=== PATIENT | female | born 1985 | race Caucasian/White ===

== ENCOUNTER 2016-11-13 11:16 | Emergency (ER) | payer MEDICAID | END 2016-11-13 13:19 | disposition left against medical advice (07) | DX: Z53.21 Procedure and treatment not carried out due to patient leaving prior to being seen by health care provider (principal) ==

== ENCOUNTER 2017-05-04 08:32 | Outpatient (CLI) | payer MEDICAID | END 2017-05-04 08:33 | disposition critical access hospital (66) | LOC: EMS 08:32 | PROVIDERS: ATTEND Surgery | DX: O20.9 Hemorrhage in early pregnancy, unspecified (principal); Z3A.18 18 weeks gestation of pregnancy | CPT/HCPCS: A0425; A0427 ==

== ENCOUNTER 2017-05-04 08:49 | Emergency (ER) | payer MEDICAID ==
[2017-05-04 11:53] LABS: BASOPHILS # (AUTO) 0.1 10^3/uL (0.0-0.1); BASOPHILS % (AUTO) 0.9 %; EOSINOPHILS % (AUTO) 0.1 %; HCT - HEMATOCRIT 36.1 % (37.0-47.0); HGB - HEMOGLOBIN 12.9 g/dL (12.0-16.0); LYMPHOCYTES # (AUTO) 1.8 10^3/uL (1.5-3.5); LYMPHOCYTES % (AUTO) 15.6 %; MEAN CORPUSCULAR HEMOGLOBIN 32.3 pg (27.0-31.0); MEAN CORPUSCULAR HGB CONC 35.9 g/dL (32.0-36.0); MEAN PLATELET VOLUME 8.3 fL (7.9-10.8); MONOCYTES # (AUTO) 0.8 10^3/uL (0.0-1.0); MONOCYTES % (AUTO) 6.6 %; NEUTROPHILS % (AUTO) 76.8 %; RED BLOOD COUNT 4.01 10^6/uL (4.20-5.40); RED CELL DISTRIBUTION WIDTH 12.6 % (12.0-15.0); UNCORRECTED WHITE BLOOD COUNT 11.8 x10^3/uL; WHITE BLOOD COUNT 11.8 x10^3/uL (4.8-10.8)
[2017-05-04 12:55] LABS: UA w/ MICROSCOPIC CHARGE YES
[2017-05-04 13:01] LABS: BILIRUBIN,URINE NEGATIVE (NEGATIVE)
[2017-05-04 13:09] LABS: UR CULTURE IF IND NOT INDICATED
[2017-05-04] MEDS ORDERED: LORazepam 0.5 MG TABLET PO STA (13:27)
[2017-05-04] MEDS ORDERED: LORazepam 0.5 MG TABLET ONE (13:46)
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
[2017-05-04 16:42] VITALS: BP 129/62
== END 2017-05-04 16:47 | disposition home or self-care (01) ==
LOC: EDUNIT# → ED 08:49 → EEVIPCON 08:49 → ED 16:47
DX: O26.892 Other specified pregnancy related conditions, second trimester (principal); R10.84 Generalized abdominal pain; O99.332 Smoking (tobacco) complicating pregnancy, second trimester; Z3A.18 18 weeks gestation of pregnancy; Y08.09XA Assault by strike by other specified type of sport equipment, initial encounter
CPT/HCPCS: 36415; 81001; 85025; 99284; A9270; 81003; 86900; 86901; 87086

== ENCOUNTER 2017-05-20 07:49 | Outpatient (CLI) | payer MEDICAID ==
--- NOTE | 2017-05-21 10:31 | Ultrasound Report ---
OB ULTRASOUND: 05/20/2017 CLINICAL INDICATION: anatomy. TECHNIQUE: Real-time scanning was performed with sales representative supervisor static images obtained. LAST MENSTRUAL PERIOD 12/30/2016 Clinical Age 20 weeks 1 day US Age 20 weeks 0 days EFW Hadlock 347 g EFW% Hadlock 56% Heart Rate 140 bpm EDC 10/06/2017 US EDC 10/07/2017 BPD Hadlock 19 weeks 1 day; Mean mm 43.4 HC Hadlock 20 weeks 0 days; Mean mm 174.5 AC Hadlock 20 weeks 2 days; Mean mm 151.0 FL Hadlock 20 weeks 4 days; Mean mm 33.6 Presentation cephalic Placental Location anterior Cervical Length 4.4 cm Amniotic Fluid 11.2 cm FINDINGS: There is a single viable intrauterine gestation, in cephalic presentation. heart rate is 140 BPM. The placenta is anterior, without evidence of previa. Amniotic fluid volume is normal, with an CRISTY of 11.2. By size, the fetus measures 20.0 weeks (20.1 weeks by LMP). The following anatomic structures were visualized and appear normal: The intracranial contents, including the ventricles and posterior fossa; the lips and orbits; the spine; the heart, including 4 chamber view and outflow tracts, and diaphragm; the abdominal contents, including the stomach, the bilateral kidneys, and urinary bladder, as well as a normal 3 vessel cord insertion; 4 limbs. No free fluid or adnexal lesion is appreciated. IMPRESSION: SINGLE VIABLE INTRAUTERINE GESTATION, WITH SIZE IN KEEPING WITH LMP DATING. NORMAL ANATOMIC SURVEY. MTDD
== END 2017-05-20 07:50 | disposition home or self-care (01) ==
LOC: DI 07:49
PROVIDERS: ATTEND Obstetrics & Gynecology
DX: Z34.82 Encounter for supervision of other normal pregnancy, second trimester (principal)
CPT/HCPCS: 76811

== ENCOUNTER 2017-05-30 11:33 | Outpatient (CLI) | payer MEDICAID ==
[2017-05-30 12:11] LABS: BASOPHILS % (AUTO) 0.4 %; EOSINOPHILS % (AUTO) 0.5 %; HCT - HEMATOCRIT 35.8 % (37.0-47.0); HGB - HEMOGLOBIN 12.7 g/dL (12.0-16.0); LYMPHOCYTES # (AUTO) 1.3 10^3/uL (1.5-3.5); LYMPHOCYTES % (AUTO) 20.2 %; MEAN CORPUSCULAR HEMOGLOBIN 32.5 pg (27.0-31.0); MEAN CORPUSCULAR HGB CONC 35.4 g/dL (32.0-36.0); MEAN CORPUSCULAR VOLUME 91.8 fL (81.0-99.0); MEAN PLATELET VOLUME 7.8 fL (7.9-10.8); MONOCYTES # (AUTO) 0.4 10^3/uL (0.0-1.0); MONOCYTES % (AUTO) 6.3 %; NEUTROPHILS # (AUTO) 4.8 10^3/uL (1.5-6.6); NEUTROPHILS % (AUTO) 72.6 %; RED CELL DISTRIBUTION WIDTH 12.7 % (12.0-15.0); UNCORRECTED WHITE BLOOD COUNT 6.5 x10^3/uL; WHITE BLOOD COUNT 6.5 x10^3/uL (4.8-10.8)
[2017-05-30 12:25] LABS: BILIRUBIN,URINE NEGATIVE (NEGATIVE); PH,URINE 6.5 PH (5.0-7.5)
[2017-06-03 12:46] LABS: TEST RESULT REPORT (())
== END 2017-05-30 11:34 | disposition home or self-care (01) ==
LOC: LAB 11:33
PROVIDERS: ATTEND Obstetrics & Gynecology
DX: Z36 Encounter for antenatal screening of mother (principal); R30.0 Dysuria
CPT/HCPCS: 36415; 81001; 81599; 85025; 86762; 86780; 86850; 86900; 86901; 87077; 87086; 87340; 87389

== ENCOUNTER 2017-05-30 11:50 | Outpatient (CLI) | payer MEDICAID | END 2017-05-30 11:51 | LOC: LAB.R 11:50 | PROVIDERS: ATTEND Obstetrics & Gynecology | DX: R30.0 Dysuria (principal) | CPT/HCPCS: 87086 ==

== ENCOUNTER 2017-06-13 21:51 | Outpatient (CLI) | payer MEDICAID | END 2017-06-13 21:52 | disposition home or self-care (01) | LOC: LAB.R 21:51 | PROVIDERS: ATTEND Obstetrics & Gynecology | DX: Z11.3 Encounter for screening for infections with a predominantly sexual mode of transmission (principal) | CPT/HCPCS: 87491; 87591 ==

== ENCOUNTER 2017-07-10 14:24 | Outpatient (CLI) | payer MEDICAID ==
[2017-07-10 13:05] LABS: HCT - HEMATOCRIT 33.3 % (37.0-47.0); MEAN CORPUSCULAR HEMOGLOBIN 33.4 pg (27.0-31.0); MEAN CORPUSCULAR VOLUME 92.7 fL (81.0-99.0); MEAN PLATELET VOLUME 8.6 fL (7.9-10.8); RED BLOOD COUNT 3.59 10^6/uL (4.20-5.40); RED CELL DISTRIBUTION WIDTH 13.1 % (12.0-15.0)
== END 2017-07-10 14:25 | disposition home or self-care (01) ==
LOC: LAB.WCP 14:24
PROVIDERS: ATTEND Obstetrics & Gynecology
DX: Z34.90 Encounter for supervision of normal pregnancy, unspecified, unspecified trimester (principal)
CPT/HCPCS: 36415; 82950; 86850

== ENCOUNTER 2017-07-15 17:32 | Outpatient (CLI) | payer MEDICAID ==
[2017-07-15 18:28] LABS: BILIRUBIN,URINE NEGATIVE (NEGATIVE)
[2017-07-15 18:51] LABS: UR CULTURE IF IND NOT INDICATED
[2017-07-15] MEDS ORDERED: NITROFURANTOIN MACRO 100 MG CAPSULE PO SCH (19:00)
[2017-07-15] MEDS ORDERED: FLUCONAZOLE 100 MG TABLET PO SCH (19:00)
[2017-07-15 19:25] VITALS: BP 105/71
== END 2017-07-15 19:30 | disposition home or self-care (01) ==
LOC: WFO 17:32 → FBP 17:33 → WFO 19:30
PROVIDERS: ATTEND Obstetrics & Gynecology
DX: O98.813 Other maternal infectious and parasitic diseases complicating pregnancy, third trimester (principal); B37.49 Other urogenital candidiasis; Z3A.28 28 weeks gestation of pregnancy
CPT/HCPCS: 81001; 99213; A9270; 87086

== ENCOUNTER 2017-08-28 21:03 | Observation (INO) | payer MEDICAID ==
[2017-08-28 21:38] LABS: BILIRUBIN,URINE NEGATIVE (NEGATIVE)
[2017-08-28 21:40] LABS: UR CULTURE IF IND NOT INDICATED
[2017-08-28] MEDS: ZOLPIDEM 5 MG TABLET PO PRN (22:24)
[2017-08-29 06:22] LABS: BILIRUBIN,URINE NEGATIVE (NEGATIVE)
[2017-08-29 06:30] LABS: WBC,URINE 0-3 /HPF (0-5)
[2017-08-29] MEDS ORDERED: PARoxetine 10 MG TABLET PO SCH ×2 (08:00→14:00)
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
[2017-08-29] MEDS: PARoxetine 10 MG TABLET PO SCH (12:28)
[2017-08-29] MEDS: ACETAMINOPHEN 500 MG TABLET PO PRN ×2 (13:27→21:09)
[2017-08-29] MEDS: BACLOFEN 10 MG TABLET PO PRN ×2 (13:27→21:09)
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
[2017-08-29] MEDS: ZOLPIDEM 5 MG TABLET PO PRN (22:02)
[2017-08-30] MEDS: ACETAMINOPHEN 500 MG TABLET PO PRN (06:02)
[2017-08-30] MEDS: BACLOFEN 10 MG TABLET PO PRN (06:02)
[2017-08-30] MEDS ORDERED: PRENATAL VITAMIN TABLET PO SCH (08:00)
[2017-08-30] MEDS: PARoxetine 10 MG TABLET PO SCH (08:54)
--- NOTE | 2017-08-30 08:59 | PROVIDER PROGRESS NOTE ---
Subjective - Prog Note Date Prog Note Date: 08/30/17 Prog Note Time: 08:54 - Subjective Pt reports feeling: Improved Subjective: Patient sitting in bed eating breakfast. Baby moving well. No VB nor LOF. Feeling better since she's gotten sleep. Muscle relaxant has helped. Kids didn' t come last night. Objective - Vital Signs/Intake & Output Reviewed Vital Signs: Yes Vital Signs: Vital Signs x48h Temp Pulse Resp BP Pulse Ox 08/30/17 06:06 97.9 F 85 12 110/63 98 Intake & Output: Intake & Output 08/27/17 08/28/17 08/29/17 08/30/17 23:59 23:59 23:59 23:59 Intake Total 450 Balance 450 - Objective General Appearance: positive: No acute distress Abdomen: positive: Non-tender (Gravid, nontender) Assessment/Plan - Problem List (1) Depression affecting in third trimester, antepartum Impression: 31 yo with a 34w5d IUP Improved back pain More stable depression Will discharge to home today Rx ambien and cyclobenzaprine Follow up with me next Saturday (09/03/2017). Anticipate NSTs for depression.
[2017-08-30 16:20] VITALS: BP 119/76
== END 2017-08-30 16:00 | disposition home or self-care (01) ==
LOC: WFO 21:03 → FBP 21:04 → WFO 08-29 13:30 → FBP 08-29 13:32
PROVIDERS: ADMIT Obstetrics & Gynecology; ATTEND Obstetrics & Gynecology
DX: O99.89 Other specified diseases and conditions complicating pregnancy, childbirth and the puerperium (principal); M53.3 Sacrococcygeal disorders, not elsewhere classified; O99.343 Other mental disorders complicating pregnancy, third trimester; F32.9 Major depressive disorder, single episode, unspecified; Z3A.34 34 weeks gestation of pregnancy; Z87.440 Personal history of urinary (tract) infections; Z59.0 Homelessness; Z91.410 Personal history of adult physical and sexual abuse; F43.10 Post-traumatic stress disorder, unspecified; F41.9 Anxiety disorder, unspecified; O99.333 Smoking (tobacco) complicating pregnancy, third trimester; F17.210 Nicotine dependence, cigarettes, uncomplicated; O99.613 Diseases of the digestive system complicating pregnancy, third trimester; K21.9 Gastro-esophageal reflux disease without esophagitis; Z86.19 Personal history of other infectious and parasitic diseases; Z81.3 Family history of other psychoactive substance abuse and dependence; R87.810 Cervical high risk human papillomavirus (HPV) DNA test positive
CPT/HCPCS: 81001; 99213; A9270; G0378; 82731; 87086

== ENCOUNTER 2017-09-04 10:02 | Outpatient (CLI) | payer MEDICAID | END 2017-09-04 10:03 | disposition home or self-care (01) | LOC: LAB.R 10:02 | PROVIDERS: ATTEND Obstetrics & Gynecology | DX: Z36.89 Encounter for other specified antenatal screening (principal) | CPT/HCPCS: 87081 ==

== ENCOUNTER 2017-09-04 10:07 | Outpatient (CLI) | payer MEDICAID ==
[2017-09-04 10:27] VITALS: BP 105/57
== END 2017-09-04 13:40 | disposition home or self-care (01) ==
LOC: LAB 10:07 → FBP 10:08 → LAB 13:40
PROVIDERS: ATTEND Obstetrics & Gynecology
DX: O26.13 Low weight gain in pregnancy, third trimester (principal); Z36.89 Encounter for other specified antenatal screening
CPT/HCPCS: 59025; 87081

== ENCOUNTER 2017-09-10 11:08 | Outpatient (CLI) | payer MEDICAID ==
[2017-09-10 11:38] VITALS: BP 115/61
== END 2017-09-10 12:00 | disposition home or self-care (01) ==
LOC: WFO 11:08 → FBP 11:10 → WFO 12:00
PROVIDERS: ATTEND Obstetrics & Gynecology
DX: O26.13 Low weight gain in pregnancy, third trimester (principal); Z3A.36 36 weeks gestation of pregnancy
CPT/HCPCS: 59025

== ENCOUNTER 2017-09-29 06:58 | Inpatient (IN) | payer MEDICAID ==
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
[2017-09-29] MEDS ORDERED: ONDANSETRON 4 MG/2 ML VIAL IVP PRN ×2 (07:30→12:00)
[2017-09-29] MEDS ORDERED: fentaNYL 100 MCG/2 ML VIAL IVP PRN (07:30)
[2017-09-29 08:26] LABS: BASOPHILS % (AUTO) 0.3 %; EOSINOPHILS # (AUTO) 0.1 10^3/uL (0.0-0.7); EOSINOPHILS % (AUTO) 0.6 %; HGB - HEMOGLOBIN 10.9 g/dL (12.0-16.0); LYMPHOCYTES # (AUTO) 1.4 10^3/uL (1.5-3.5); LYMPHOCYTES % (AUTO) 11.3 %; MEAN CORPUSCULAR HEMOGLOBIN 31.8 pg (27.0-31.0); MEAN CORPUSCULAR HGB CONC 34.9 g/dL (32.0-36.0); MEAN CORPUSCULAR VOLUME 91.1 fL (81.0-99.0); MEAN PLATELET VOLUME 8.7 fL (7.9-10.8); NEUTROPHILS # (AUTO) 9.6 10^3/uL (1.5-6.6); NEUTROPHILS % (AUTO) 79.8 %; PLT - PLATELET COUNT 158 10^3/uL (130-450); RED BLOOD COUNT 3.44 10^6/uL (4.20-5.40); RED CELL DISTRIBUTION WIDTH 13.6 % (12.0-15.0); WHITE BLOOD COUNT 12.1 x10^3/uL (4.8-10.8)
[2017-09-29] MEDS: PARoxetine 10 MG TABLET PO SCH (08:51)
[2017-09-29] MEDS: SODIUM CHLORIDE FLUSH 0.9% 10 ML SYRINGE IVP PRN ×2 (08:57→11:16)
--- NOTE | 2017-09-29 09:12 | PROVIDER PROGRESS NOTE ---
Subjective - Prog Note Date Prog Note Date: 09/29/17 Prog Note Time: 09:10 - Subjective Pt reports feeling: No change Subjective: is here in bed, currently getting her IV. Accompanied by 4 female friends in the room. Excited to be delivered and have a sterilization. Reports baby girl Valeria moving well. No VB nor LOF. Continues to have irregular contractions. Objective - Vital Signs/Intake & Output Vital Signs: Vital Signs x48h Temp Pulse Resp BP Pulse Ox 09/29/17 07:50 98.1 F 119 H 18 116/72 100 - Objective General Appearance: positive: No acute distress Eyes Bilateral: positive: Normal inspection Abdomen: positive: Non-tender, Other (Gravid) - Lab Results Fish Bones: 09/29/17 08:05 Other Labs: Lab Results x24hrs 09/29/17 Range/Units 08:05 WBC 12.1 H (4.8-10.8) x10^3/uL RBC 3.44 L (4.20-5.40) 10^6/uL Hgb 10.9 L (12.0-16.0) g/dL Hct 31.4 L (37.0-47.0) % MCV 91.1 (81.0-99.0) fL MCH 31.8 H (27.0-31.0) pg MCHC 34.9 (32.0-36.0) g/dL RDW 13.6 (12.0-15.0) % Plt Count 158 (130-450) 10^3/uL MPV 8.7 (7.9-10.8) fL Neut # 9.6 H (1.5-6.6) 10^3/uL Lymph # 1.4 L (1.5-3.5) 10^3/uL [place] # 1.0 (0.0-1.0) 10^3/uL Eos # 0.1 (0.0-0.7) 10^3/uL Baso # 0.0 (0.0-0.1) 10^3/uL Absolute Nucleated RBC 0.00 x10^3/uL Nucleated RBC % 0.0 /100WBC Assessment/Plan - Problem List (1) Elective induction of labor planned Impression: 32 yo with a 39w0d IUP, C/W a 17 week U/S, EDC 10/06/2017 Desired elective induction of labor GBS negative Last CVE in office /2, moderately firm, posterior Desires epidural for pain control Start pitocin Once in a regular pattern, will give epidural and then AROM Expect Immediate tubal sterilization H&P already dictated: [id number]
[2017-09-29] MEDS: OXYTOCIN/SODIUM CHLORIDE 250 ML IV SCH ×2 (09:35→19:36)
[2017-09-29] MEDS: LACTATED RINGERS 1,000 ML IV SCH ×3 (09:35→20:35)
[2017-09-29] MEDS: CALCIUM CARBONATE CHEW 500 MG TABLET PO SCH ×3 (11:01→18:25)
--- NOTE | 2017-09-29 11:12 | PROVIDER PROGRESS NOTE ---
Labor Progress Note - Uterine Monitoring Uterine Monitoring Mode: positive: External toco Contraction Frequency (min/apart): Q5 Contraction Intensity: positive: Moderate to strong Uterine Resting Tone: positive: Soft - Monitoring Monitor Mode: positive: External ultrasound Heart Rate Variability: positive: Moderate (6-25 bmp) Accelerations: positive: Present, 15x15 Decelerations: positive: None Strip Review: positive: Category I - Labor Progress Note Labor Progress Note/Additional Text: 32 yo with a 39w0d IUP Desired induction of labor Desires epidural for pain control Continue pitocin (currently on 3 milliunits/min) Epidural AROM Expect tubal sterilization
[2017-09-29] MEDS ORDERED: fent/BUPIV 2 MCG/0.125% 250 ML EP ONE (11:14)
[2017-09-29] MEDS ORDERED: BUPIVACAINE 0.25% PF 30 ML VIAL SUBQ ONE (11:30)
[2017-09-29] MEDS ORDERED: NALOXONE 0.4 MG/ML VIAL IVP PRN (12:00)
[2017-09-29] MEDS ORDERED: diphenhydrAMINE INJ 50 MG/ML VIAL IVP PRN (12:00)
[2017-09-29] MEDS ORDERED: ePHEDrine 50 MG/ML VIAL IVP PRN (12:00)
[2017-09-29] MEDS ORDERED: NALBUPHINE 20 MG/ML AMP IVP PRN (12:00)
[2017-09-29] MEDS ORDERED: fent/BUPIV 2 MCG/0.125% 250 ML EP PRN (12:00)
[2017-09-29] MEDS ORDERED: LACTATED RINGERS 500 ML IV ONE (12:00)
[2017-09-29] MEDS: ACETAMINOPHEN 325 MG TABLET PO PRN ×3 (12:06→20:17)
--- NOTE | 2017-09-29 12:47 | PROVIDER PROGRESS NOTE ---
Labor Progress Note - Uterine Monitoring Uterine Monitoring Mode: positive: External toco Contraction Frequency (min/apart): Q2-5 Contraction Intensity: positive: Moderate to strong Uterine Resting Tone: positive: Soft - Monitoring Monitor Mode: positive: External ultrasound Heart Rate Variability: positive: Moderate (6-25 bmp) Accelerations: positive: Present, 15x15 Decelerations: positive: None - Vaginal Exam Dilation (in cm): 5 Effacement (%): 70 Station: -1 Cervical Position: Midposition - Labor Progress Note Labor Progress Note/Additional Text: 32 yo with a 39w0d IUP. Elective induction of labor. Desires permanent sterilization. Active labor CVE 5/70/-1, midposition, soft. Reassuring and maternal status. AROM-- clear fluid. Continue with pitocin, currently at 3 milliunits/min. Continue with epidural. Anesthesia aware of plan for immediate tubal sterilization. Expect .
[2017-09-29] MEDS: SODIUM CHLORIDE FLUSH 0.9% 10 ML SYRINGE IVP SCH ×2 (14:07→14:54)
[2017-09-29] MEDS: NICOTINE 14 MG PATCH TOP SCH (14:07)
--- NOTE | 2017-09-29 15:27 | PROVIDER PROGRESS NOTE ---
Labor Progress Note - Uterine Monitoring Uterine Monitoring Mode: positive: External toco Contraction Frequency (min/apart): Q2-5 Contraction Intensity: positive: Moderate to strong - Monitoring Monitor Mode: positive: External ultrasound Heart Rate Baseline: 120's Heart Rate Variability: positive: Moderate (6-25 bmp) Accelerations: positive: Present, 15x15 Decelerations: positive: None - Labor Progress Note Labor Progress Note/Additional Text: 32 yo with a 39w0d IUP Active labor (CVE deferred since the patient denies rectal pressure) AROM about 12:45 Desires permanent sterilization Continue pitocin (3 milliunits/minute) Continue epidural Expect sterilization
--- NOTE | 2017-09-29 16:30 | PROVIDER PROGRESS NOTE ---
Labor Progress Note - Uterine Monitoring Uterine Monitoring Mode: positive: External toco Contraction Frequency (min/apart): Q2 Contraction Intensity: positive: Moderate to strong Uterine Resting Tone: positive: Soft - Monitoring Monitor Mode: positive: External ultrasound Heart Rate Variability: positive: Moderate (6-25 bmp) Accelerations: positive: Present, 15x15 Decelerations: positive: None - Vaginal Exam Dilation (in cm): 7 Effacement (%): 70 Station: -1 Cervical Position: Midposition - Labor Progress Note Labor Progress Note/Additional Text: 32 yo with a 39w0d IUP. Active labor. Called by OB RN to bedside. On last CVE, RN noted copious amounts of BRB per vagina. Hand towels soaked. By my exam, no active bleeding, but a 65 gm clot removed. CVE /-1. Continue pitocin 4 milliunits/min. Continue epidural. Clinically patient abrupting but maternal and status reassuring. D/W the patient given reassuring status will continue VTOL. If however, either maternal of status nonreassuring, will proceed to immediate delivery with tubal sterilization. Expect with tubal sterilization. Close monitoring of maternal and status.
[2017-09-29] MEDS ORDERED: miSOPROStol 200 MCG TABLET PR SCH (16:42)
[2017-09-29] MEDS ORDERED: SODIUM CHLORIDE 0.9% MINIBAG 100 ML IV ONE (19:25)
[2017-09-29] MEDS ORDERED: OXYTOCIN/SODIUM CHLORIDE 250 ML IV ONE (19:45)
[2017-09-29] MEDS ORDERED: MAGNESIUM HYDROXIDE 2,400 MG/30 ML UDC PO PRN (19:45)
[2017-09-29] MEDS ORDERED: WITCH HAZEL/GLYCERIN 1 EACH MED..PAD TOP PRN (19:45)
[2017-09-29] MEDS ORDERED: diphenhydrAMINE 25 MG CAPSULE PO PRN (19:45)
[2017-09-29] MEDS ORDERED: HYDROCORTISONE/PRAMOXINE 10 GM PR PRN (19:45)
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
[2017-09-29] MEDS: DOCUSATE SODIUM 100 MG CAPSULE PO SCH (20:17)
[2017-09-29] MEDS: CELECOXIB 100 MG CAPSULE PO SCH (20:17)
[2017-09-29] MEDS: HYDROcod/ACETAM 5/325 MG TABLET PO PRN (22:15)
[2017-09-30] MEDS: LACTATED RINGERS 1,000 ML IV SCH (04:08)
[2017-09-30] MEDS: HYDROcod/ACETAM 5/325 MG TABLET PO PRN ×3 (04:17→20:41)
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
[2017-09-30] MEDS ORDERED: BUPIVACAINE 0.25%-EPI 1:200000 PF 30 ML VIAL SUBQ ONE ×2 (11:38→12:09)
[2017-09-30] MEDS ORDERED: LACTATED RINGERS 1,000 ML IV ONE ×4 (11:39→12:36)
[2017-09-30] MEDS ORDERED: LIDOCAINE MPF 2%-EPI 1:200000 20 ML VIAL SUBQ ONE (11:50)
[2017-09-30] MEDS ORDERED: OXYTOCIN/SODIUM CHLORIDE 250 ML IV ONE (12:50)
--- NOTE | 2017-09-30 12:57 | OPERATIVE REPORT ---
Operative Report - General Admit Date: 09/29/17 Procedure Date: 09/30/17 Planned Procedure: tubal with Filshe Clips Pre-Op Diagnosis: 32 yo P5 Post Op Diagnosis: Same - Procedure Note Primary Surgeon: Luiz Kuhn MD Anesthesia Provider: Michael Lawrence MD Anesthesia Technique: Epidural IV Fluids (mL): 500 Estimated Blood Loss (mL): 5
[2017-09-30] MEDS ORDERED: LACTATED RINGERS 1,000 ML IV SCH (13:00)
[2017-09-30] MEDS: PARoxetine 10 MG TABLET PO SCH (13:27)
[2017-09-30] MEDS: CELECOXIB 100 MG CAPSULE PO SCH ×2 (13:28→20:41)
[2017-09-30] MEDS: CALCIUM CARBONATE CHEW 500 MG TABLET PO SCH (16:00)
[2017-09-30] MEDS: NICOTINE 14 MG PATCH TOP SCH (16:01)
[2017-09-30] MEDS: DOCUSATE SODIUM 100 MG CAPSULE PO SCH ×2 (16:01→20:41)
[2017-09-30] MEDS: PSEUDOEPHEDRINE 30 MG TABLET PO PRN (20:41)
[2017-09-30] MEDS: SIMETHICONE CHEW 80 MG TABLET PO PRN (21:41)
[2017-10-01] MEDS: OXYMETAZOLINE NASAL SPRAY NAS PRN ×2 (00:20→14:23)
[2017-10-01] MEDS: HYDROcod/ACETAM 5/325 MG TABLET PO PRN ×3 (02:53→14:20)
[2017-10-01] MEDS: SIMETHICONE CHEW 80 MG TABLET PO PRN (03:01)
[2017-10-01] MEDS: PSEUDOEPHEDRINE 30 MG TABLET PO PRN (05:02)
[2017-10-01] MEDS: CALCIUM CARBONATE CHEW 500 MG TABLET PO SCH ×3 (06:29→15:57)
--- NOTE | 2017-10-01 07:33 | OPERATIVE REPORT ---
DATE OF SERVICE: 09/29/2017 Physician: Luiz Kuhn MD PREOPERATIVE DIAGNOSIS: A 32-year-old female, para 5, requesting permanent sterilization. POSTOPERATIVE DIAGNOSIS: A 32-year-old female, para 5, requesting permanent sterilization. PROCEDURE PERFORMED: tubal ligation with Filshie clips. SURGEON: Luiz Kuhn MD ANESTHESIA: Epidural. ESTIMATED BLOOD LOSS: Less than 5 mL FINDINGS: Fallopian tubes appeared to be normal, were traced all the way to the fimbriated end. PROCEDURE: Following adequate epidural anesthesia, the patient was placed in the supine position. Following a time out, which identified the patient, as well as concerns, she was prepped and draped in the usual fashion. Following local anesthesia with 0.25% Marcaine with epinephrine injected in the subumbilical area, a curvilinear incision was made utilizing a #15 blade. An umbilical hernia was encountered. The incision was carried down all the way to the fascia and then into the peritoneum. Care was taken to avoid injury to the bowel at this time. At this point, utilizing [place] retractors as well as the fifth digit, the right fallopian tube was brought up to the incision, grasped with a German and followed all the way to its fimbriated end. A Hulka clip was then placed completely traversing the fallopian tube, roughly 2 cm from the cornu. Care was observed, and there was no evidence of any bleeding. The tube was allowed to fall back in the abdominal cavity. The left tube was treated in an identical fashion. Following the utilization of [place] retractors and the smallest digit, the fallopian tube was brought up through the incision, followed all the way to its fimbriated end, and then roughly 2 cm from the cornu, a Filshie clip was placed traversing the fallopian tube. Care was taken to observe this, and there was no evidence of any kind of bleeding at this time. The peritoneum was closed utilizing 2-0 Vicryl. The fascia was closed utilizing 0 Vicryl. Care was taken to try and close the umbilical defect. The incision itself was closed utilizing 4-0 Monocryl, and then Dermabond was utilized to close the incision itself. The patient tolerated procedure well, was taken to recovery in stable condition. Sponge and needle counts were correct. TD: 10/01/2017 08:15 [facility]
[2017-10-01] MEDS: CELECOXIB 100 MG CAPSULE PO SCH (08:05)
[2017-10-01] MEDS: DOCUSATE SODIUM 100 MG CAPSULE PO SCH (08:05)
--- NOTE | 2017-10-01 08:42 | PROVIDER PROGRESS NOTE ---
Subjective - General Admit Date: 09/29/17 Procedure Date: 09/30/17 Post Op Days: 1 Procedure Performed: Tubal ligation - Review of Systems Wound/Incisions: positive: Healing well, Dressing dry and intact, No drainage, Erythema (just below the incision possible brusing from the surgery) General: positive: No symptoms HEENT: positive: Sinus congestion, Post nasal drip Cardiovascular: positive: No symptoms Gastrointestinal: positive: No symptoms, Flatus Genitourinary: positive: No symptoms Psychiatric: positive: Anxiety. negative: Suicidal ideation, Homicidal ideation Objective - Patient Data Reviewed Vital Signs: Yes Vital Signs: Vital Signs x48h Temp Pulse Resp BP Pulse Ox 10/01/17 08:38 36.8 C 81 18 104/65 99 10/01/17 02:50 36.7 C 86 18 103/55 L 98 Weight: Weight 09/29/17 09/30/17 10/01/17 23:59 23:59 23:59 Weight (kg) 78.471 kg Intake & Output: Intake and Output Totals x24h 09/29/17 09/30/17 10/01/17 23:59 23:59 23:59 Intake Total 1407.186 7690 Output Total 1050 2550 Balance 310.017 -1295 - Lab Results Lab Results: 09/29/17 08:05 - Current Medications Current Medications: Current Medications Generic Name Dose Route Start Last Admin Trade Name Freq PRN Reason Stop Dose Admin Acetaminophen 650 mg 09/29/17 07:30 09/29/17 20:17 Tylenol PO 650 mg Q6H PRN Administration Pain or Fever Acetaminophen/Hydrocodone Bitart 2 tab 09/29/17 19:45 10/01/17 08:05 [place] 5/325 PO 2 tab Q4HR PRN Administration PAIN Calcium Carbonate/Glycine 500 mg 09/29/17 11:00 10/01/17 06:32 Tums PO Not Given TID RASHAAD Celecoxib 200 mg 09/29/17 21:00 10/01/17 08:05 Celebrex PO 200 mg BID RASHAAD Administration Docusate Sodium 100 mg 09/29/17 21:00 10/01/17 08:05 Colace 100mg Capsule PO 100 mg BID RASHAAD Administration Nicotine 1 patch 09/29/17 11:00 09/30/17 16:01 Nicoderm TOP Not Given DAILY RASHAAD Oxymetazoline HCl 2 sprays 10/01/17 00:02 10/01/17 00:20 Afrin TREVOR 2 sprays BID PRN Administration Nasal Congestion Paroxetine HCl 30 mg 09/29/17 09:00 09/30/17 13:27 Paxil PO 30 mg DAILY RASHAAD Administration Pseudoephedrine HCl 30 mg 09/30/17 14:01 10/01/17 05:02 Sudafed PO 30 mg Q6HR PRN Administration Nasal Congestion Ranitidine HCl 150 mg 09/29/17 10:29 09/30/17 20:41 Zantac PO 150 mg BID RASHAAD Administration Simethicone 80 mg 09/30/17 13:42 10/01/17 03:01 Mylicon PO 80 mg 0900,1300,1800,2100 PRN Administration Gas Witch Sharon/Glycerin 1 each 09/29/17 19:45 09/30/17 02:08 Tucks TOP 1 each QID PRN Administration Hemorrhoids - Physical Exam Wound/Incisions: positive: Healing well General Appearance: positive: Mild distress (pain 6-7/10.) Respiratory: positive: Chest non-tender, No respiratory distress, Breath sounds nml. negative: Wheezes Cardiovascular: positive: Regular rate & rhythm Abdomen: positive: Nml bowel sounds, No distention, Tenderness (at the incision site. Pt C/O pain at the left filshe clip), Mass (U-1) Back: positive: Nml inspection. negative: CVA tenderness (R), CVA tenderness (L ) Neurologic/Psychiatric: positive: Oriented x3, Depressed mood/affect (Pt changed her afect when we discused the nicodem Patch for smoking) Impression/Plan - Problem List Problem List: Discharge for boarding status. Continue her Meds of Paxel Motrin Percocet Colace Tylenol Afern
[2017-10-01 11:20] VITALS: BP 102/64
[2017-10-01] MEDS: PARoxetine 10 MG TABLET PO SCH (14:21)
[2017-10-01] MEDS: NICOTINE 14 MG PATCH TOP SCH (15:57)
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
--- NOTE | 2017-10-09 08:30 | Discharge Plan ---
Discharge Plan Disposition: 01 Home, Self Care Condition: Good Diet: Regular Activity Restrictions: Pelvic rest 6 weeks Shower Restrictions: Yes Driving Restrictions: Yes (when taking narcotics) Weight Bearing: Full Weight No Smoking: If you smoke, Please STOP! Call for help. Follow-up with: Sagrario Dominguez DO [Provider Admit Priv/Credential] -
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
== END 2017-10-01 15:45 | disposition home or self-care (01) | DRG 767 ==
LOC: WFO 06:58 → FBP 06:59
PROVIDERS: ADMIT Obstetrics & Gynecology; ATTEND Obstetrics & Gynecology
PROC: 10E0XZZ Delivery of Products of Conception, External Approach (ICD-10-PCS; principal; 2017-09-29)
PROC: 0U7C7ZZ Dilation of Cervix, Via Natural or Artificial Opening (ICD-10-PCS; 2017-09-29)
PROC: 10907ZC Drainage of Amniotic Fluid, Therapeutic from Products of Conception, Via Natural or Artificial Opening (ICD-10-PCS; 2017-09-29)
PROC: 0UL70CZ Occlusion of Bilateral Fallopian Tubes with Extraluminal Device, Open Approach (ICD-10-PCS; 2017-09-30)
DX: O99.344 Other mental disorders complicating childbirth (principal); O45.93 Premature separation of placenta, unspecified, third trimester; O99.334 Smoking (tobacco) complicating childbirth; Z37.0 Single live birth; F17.200 Nicotine dependence, unspecified, uncomplicated; Z3A.39 39 weeks gestation of pregnancy; F32.9 Major depressive disorder, single episode, unspecified; F41.9 Anxiety disorder, unspecified; F43.10 Post-traumatic stress disorder, unspecified; Z87.440 Personal history of urinary (tract) infections; Z86.19 Personal history of other infectious and parasitic diseases; Z30.2 Encounter for sterilization; Z91.419 Personal history of unspecified adult abuse
CPT/HCPCS: 36415; 85025; 88307

== ENCOUNTER 2018-02-21 13:21 | Emergency (ER) | payer MEDICAID ==
[2018-02-21 13:38] VITALS: BP 125/79
--- NOTE | 2018-02-21 14:17 | ED Physician Documentation ---
History of Present Illness - Stated complaint Stated Complaint: EAR PX BOTH EARS - Chief complaint Chief Complaint: Heent - History obtained from History obtained from: Patient - History of Present Illness Timing: Other (several months) Pain level max: 4 Pain level now: 3 Improved by: nothing Worsened by: nothing - Additonal information Additional information: Patient is a 32-year-old female who presents to the emergency department complaining of intermittent bilateral ear pain for the past several months. Today it is on the right side. She also had some white/yellow drainage from the right ear yesterday. No fevers. No vomiting. No chance of . No loss of hearing. No nasal congestion. No sore throat. Does have a history of eczema. 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 - Present Medications Home Medications: Ambulatory Orders Medication Instructions Recorded Confirmed Neomycin/Polymyx/Hc Otic Drops 4 drops OT TID 7 Days #1 bottle 02/21/18 [Cortisporin Ear Susp] - Allergies Allergies/Adverse Reactions: Allergies Allergy/AdvReac Type Severity Reaction Status Date / Time mushroom Allergy Mild Itching Verified 02/21/18 13:39 Penicillins Allergy Mild Rash Verified 02/21/18 13:39 - Social History Does the pt smoke?: Yes Smoking Status: Current every day smoker Does the pt drink ETOH?: Yes ETOH Use: Liquor Does the pt have substance abuse?: Yes Substance Use and Type: Marijuana - Immunizations Immunizations are current?: Yes - POLST Patient has POLST: No PD ED PE NORMAL - Vitals Vital signs reviewed: Yes - General General: Alert and oriented X 3, No acute distress - HEENT HEENT: Moist mucous membranes, Pharynx benign, Other (Left ear canal and tympanic membrane are normal. Right ear canal is swollen, erythematous with white exudate. The tympanic membrane is mildly erythematous, but no fluid present. Not bulging.) - Neck Neck: Supple, no meningeal sign, No adenopathy - Cardiac Cardiac: RRR - Respiratory Respiratory: No respiratory distress, Clear bilaterally - Derm Derm: Warm and dry - Neuro Neuro: Alert and oriented X 3 Results - Vitals Vitals: Vital Signs - 24 hr 02/21/18 13:35 Temperature 36.7 C Heart Rate 84 Respiratory 18 Rate Blood Pressure 125/79 O2 Saturation 97 Oxygen O2 Source Room air PD MEDICAL DECISION MAKING - ED course Complexity details: considered differential, d/w patient ED course: Patient is a 32-year-old female with what appears to be a right acute otitis externa. Will place on Cortisporin Otic and follow-up closely with her doctor. No perforated eardrum on examination. Patient counseled regarding signs and symptoms for which I believe and urgent re-evaluation would be necessary. Patient with good understanding of and agreement to plan and is comfortable going home at this time This document was made in part using voice recognition software. While efforts are made to proofread this document, sound alike and grammatical errors may occur. No otitis media. No mastoiditis. No necrotizing otitis externa. Departure - Departure Disposition: 01 Home, Self Care Clinical Impression: Otitis externa Qualifiers: Otitis externa type: diffuse Chronicity: acute Laterality: right Qualified Code (s): H60.311 - Diffuse otitis externa, right ear Condition: Good Instructions: ED Otitis Externa Follow-Up: your,doctor as needed [Other] Prescriptions: Neomycin/Polymyx/Hc Otic Drops [Cortisporin Ear Susp] 4 drops OT TID 7 Days #1 bottle Comments: Use the eardrops as instructed. Return if you worsen. Discharge Date/Time: 02/21/18 14:27
== END 2018-02-21 14:27 | disposition home or self-care (01) ==
LOC: ED 13:21
DX: H60.311 Diffuse otitis externa, right ear (principal); F17.200 Nicotine dependence, unspecified, uncomplicated
CPT/HCPCS: 99283

== ENCOUNTER 2018-04-24 12:58 | Emergency (ER) | payer MEDICAID ==
[2018-04-24] MEDS ORDERED: ONDANSETRON ODT 4 MG TABLET TL STA (15:24)
--- NOTE | 2018-04-24 15:27 | ED Physician Documentation ---
History of Present Illness - Stated complaint Stated Complaint: Needs note to return to work - Chief complaint Chief Complaint: Abd Pain - History obtained from History obtained from: Patient - Additonal information Additional information: 32-year-old female presents the emergency department requesting a note to return to work. The patient called out of work yesterday secondary to feeling nauseous and having multiple episodes of vomiting. Today, the patient denies any vomiting, abdominal pain, fevers, chills, chest pain, shortness of breath or cough. The patient has no active medical complaints. The patient denies diarrhea or blood in the vomit or stools. Currently no symptoms. Review of Systems Constitutional: denies: Fever, Chills Eyes: denies: Loss of vision Ears: denies: Ear pain Nose: denies: Rhinorrhea / runny nose, Congestion Throat: denies: Sore throat Cardiac: denies: Chest pain / pressure Respiratory: denies: Cough GI: denies: Abdominal Pain, Vomiting, Diarrhea : denies: Dysuria Neurologic: denies: Generalized weakness Immunocompromised: denies: Chemotherapy PD PAST MEDICAL HISTORY - Past Medical History Past Medical History: Yes Cardiovascular: None Respiratory: None Endocrine/Autoimmune: None Psych: Depression, Anxiety, Post traumatic stress disorder - Past Surgical History 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 - Present Medications Home Medications: Ambulatory Orders Medication Instructions Recorded Confirmed Ondansetron Odt [Zofran] 4 mg TL Q6H PRN #20 tablet 04/24/18 - Allergies Allergies/Adverse Reactions: Allergies Allergy/AdvReac Type Severity Reaction Status Date / Time mushroom Allergy Mild Itching Verified 02/21/18 13:39 Penicillins Allergy Mild Rash Verified 04/24/18 13:06 - Social History Does the pt smoke?: Yes Smoking Status: Current every day smoker Does the pt drink ETOH?: Yes Does the pt have substance abuse?: Yes - Immunizations Immunizations are current?: Yes - POLST Patient has POLST: No PD ED PE NORMAL - General General: Alert and oriented X 3, No acute distress - HEENT HEENT: Atraumatic, PERRL, EOMI, Ears normal - Neck Neck: Supple, no meningeal sign - Cardiac Cardiac: RRR, No gallop - Respiratory Respiratory: No respiratory distress, Clear bilaterally - Abdomen Abdomen: Normal bowel sounds, Non tender, Non distended - Extremities Extremities: No deformity - Neuro Neuro: Alert and oriented X 3, Normal speech - Psych Psych: Normal mood Results - Vitals Vitals: Vital Signs - 24 hr 04/24/18 13:04 Temperature 36.4 C L Heart Rate 93 Respiratory 18 Rate Blood Pressure 109/74 O2 Saturation 98 Oxygen O2 Source Room air PD MEDICAL DECISION MAKING - ED course ED course: 32-year-old female will be given a note for work, the patient has no active medical complaints. Currently there is no findings that would necessitate further workup in the emergency department. I discussed warning signs and recommended return to the emergency department for any worsening or concerns. - Sepsis Event Vital Signs: Vital Signs - 24 hr 04/24/18 13:04 Temperature 36.4 C L Heart Rate 93 Respiratory 18 Rate Blood Pressure 109/74 O2 Saturation 98 Oxygen O2 Source Room air Departure - Departure Disposition: 01 Home, Self Care Clinical Impression: Evaluation by medical service required Vomiting Qualifiers: Vomiting type: unspecified Vomiting Intractability: non-intractable Nausea presence: without nausea Qualified Code(s): R11.11 - Vomiting without nausea Condition: Good Instructions: ED Nausea Vomiting, ED Diet Vomiting Diarrhea Ch Prescriptions: Ondansetron Odt [Zofran] 4 mg TL Q6H PRN #20 tablet PRN Reason: Nausea / Vomiting Comments: Please follow-up with primary care please return to the emergency department for worsening symptoms or any concerns. Forms: Activity restrictions
[2018-04-24 15:44] VITALS: BP 126/85
== END 2018-04-24 15:49 | disposition home or self-care (01) ==
LOC: ED 12:58
DX: Z02.89 Encounter for other administrative examinations (principal); R11.11 Vomiting without nausea; F17.200 Nicotine dependence, unspecified, uncomplicated
CPT/HCPCS: 99282; 99283; Q0162

== ENCOUNTER 2018-06-10 11:33 | Emergency (ER) | payer MEDICAID ==
[2018-06-10 11:53] VITALS: BP 112/88
== END 2018-06-10 13:06 | disposition left against medical advice (07) ==
LOC: ED 11:33
DX: Z53.21 Procedure and treatment not carried out due to patient leaving prior to being seen by health care provider (principal)

== ENCOUNTER 2018-09-14 13:36 | Emergency (ER) | payer MEDICAID ==
[2018-09-14 13:41] VITALS: BP 119/82
--- NOTE | 2018-09-14 13:58 | ED Physician Documentation ---
History of Present Illness - Stated complaint Stated Complaint: SWOLLEN EYE/STINGING - Chief complaint Chief Complaint: Heent - History obtained from History obtained from: Patient - History of Present Illness Timing: Yesterday Pain level max: 0 Pain level now: 0 - Additonal information Additional information: 32-year-old female who presents to the emergency department with upper respiratory infection symptoms for the past week or so. She states over the last 24 hours has developed redness and drainage from the left eye. Has not had any fevers. Has had some coughing and nasal congestion but states this is now improving. 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 - Present Medications Home Medications: Ambulatory Orders Medication Instructions Recorded Confirmed Polymyxin B/Trimeth Ophth Drop 1 drops LEFTEYE Q3H 7 Days #1 09/14/18 [Polytrim Ophth Drops] bottle - Allergies Allergies/Adverse Reactions: Allergies Allergy/AdvReac Type Severity Reaction Status Date / Time mushroom Allergy Mild Itching Verified 06/10/18 11:53 Penicillins Allergy Mild Rash Verified 09/14/18 13:41 - Social History Does the pt smoke?: Yes Smoking Status: Current every day smoker Does the pt drink ETOH?: Yes Does the pt have substance abuse?: Yes - Immunizations Immunizations are current?: Yes - POLST Patient has POLST: No PD ED PE NORMAL - Vitals Vital signs reviewed: Yes - General General: Alert and oriented X 3, No acute distress - HEENT HEENT: Ears normal, Moist mucous membranes, Pharynx benign, Other (L eye conjunctival injection with yellow drainage) - Neck Neck: Supple, no meningeal sign - Cardiac Cardiac: RRR - Respiratory Respiratory: No respiratory distress, Clear bilaterally - Derm Derm: Warm and dry - Neuro Neuro: Alert and oriented X 3 Results - Vitals Vitals: Vital Signs - 24 hr 09/14/18 13:38 Temperature 36.6 C Heart Rate 106 H Respiratory 18 Rate Blood Pressure 119/82 H O2 Saturation 98 Oxygen O2 Source Room air PD MEDICAL DECISION MAKING - ED course Complexity details: considered differential, d/w patient ED course: 32-year-old female with a left eye bacterial conjunctivitis. Will place on Polytrim ophthalmic and follow-up with her doctor. She is well-appearing, nontoxic. Afebrile. No hypoxia. Patient counseled regarding signs and symptoms for which I believe and urgent re-evaluation would be necessary. Patient with good understanding of and agreement to plan and is comfortable going home at this time This document was made in part using voice recognition software. While efforts are made to proofread this document, sound alike and grammatical errors may occur. Departure - Departure Disposition: 01 Home, Self Care Clinical Impression: Bacterial conjunctivitis of left eye Condition: Good Instructions: ED Conjunctivitis Bacterial Follow-Up: your,doctor as needed [Other] Prescriptions: Polymyxin B/Trimeth Ophth Drop [Polytrim Ophth Drops] 1 drops LEFTEYE Q3H 7 Days #1 bottle Comments: Use the drops as prescribed. Return if you worsen.
== END 2018-09-14 14:11 | disposition home or self-care (01) ==
LOC: ED 13:36
DX: H10.022 Other mucopurulent conjunctivitis, left eye (principal); B96.89 Other specified bacterial agents as the cause of diseases classified elsewhere; F17.200 Nicotine dependence, unspecified, uncomplicated
CPT/HCPCS: 99283

== ENCOUNTER 2019-01-12 19:57 | Emergency (ER) | payer MEDICAID ==
[2019-01-12] MEDS ORDERED: CLINDAMYCIN 150 MG CAPSULE PO STA (20:12)
[2019-01-12] MEDS ORDERED: HYDROcod/ACET 5/325 Prepack 4 PO STA (20:12)
--- NOTE | 2019-01-12 20:14 | ED Physician Documentation ---
PD HPI HEENT - Stated complaint Stated Complaint: TOOTH PX - Chief complaint Chief Complaint: Heent - History obtained from History obtained from: Patient - History of Present Illness Timing - onset: Other (She has had dental pain from a right mandibular molar for a couple of months that is acutely worse now radiating to the right ear with drainage of the right ear as well.) Review of Systems Constitutional: reports: Reviewed and negative Nose: reports: Reviewed and negative. denies: Rhinorrhea / runny nose, Congestion Throat: reports: Dental pain / toothache. 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 - Present Medications Home Medications: Ambulatory Orders Medication Instructions Recorded Confirmed Clindamycin HCl [Clindamycin 300MG 300 mg PO Q6H #28 capsule 01/12/19 CAP] Hydrocodone/Acetaminophen 1 - 2 each PO Q6H PRN #14 tablet 01/12/19 [Hydrocodon-Acetaminophen 5-325] Neomycin/Polymyx/Hc Otic Drops 4 drops OT TID #1 bottle 01/12/19 [Cortisporin Ear Susp] - Allergies Allergies/Adverse Reactions: Allergies Allergy/AdvReac Type Severity Reaction Status Date / Time mushroom Allergy Mild Itching Verified 01/12/19 20:04 Penicillins Allergy Mild Rash Verified 01/12/19 20:04 - Social History Does the pt smoke?: Yes Smoking Status: Current every day smoker Does the pt drink ETOH?: Yes Does the pt have substance abuse?: Yes - Immunizations Immunizations are current?: Yes - POLST Patient has POLST: No PD ED PE NORMAL - Vitals Vital signs reviewed: Yes - General General: Alert and oriented X 3, No acute distress - HEENT HEENT: Other (The last mandibular molar on the right is tender with very mild overlying facial swelling but no sublingual edema or trismus. She has external otitis on the right without mastoid tenderness or swelling of the ear itself. There is no adenopathy.) - Neck Neck: Supple, no meningeal sign, No bony TTP - Neuro Neuro: Alert and oriented X 3, Normal speech Results - Vitals Vitals: Vital Signs - 24 hr 01/12/19 20:00 Temperature 36.5 C Heart Rate 101 H Respiratory 20 Rate Blood Pressure 132/83 H O2 Saturation 100 Oxygen O2 Source Cool Mist Departure - Departure Disposition: 01 Home, Self Care Clinical Impression: Dental abscess External otitis of right ear Qualifiers: Otitis externa type: other infective Chronicity: acute Qualified Code(s): H60.391 - Other infective otitis externa, right ear Condition: Good Record reviewed to determine appropriate education?: Yes Instructions: ED Abscess Dental, ED Otitis Externa Prescriptions: Clindamycin HCl [Clindamycin 300MG CAP] 300 mg PO Q6H #28 capsule Hydrocodone/Acetaminophen [Hydrocodon-Acetaminophen 5-325] 1 - 2 each PO Q6H PRN #14 tablet PRN Reason: pain Neomycin/Polymyx/Hc Otic Drops [Cortisporin Ear Susp] 4 drops OT TID #1 bottle Comments: It is very important that you follow-up with a dentist. When it comes to dental problems like yours, the emergency department can only offer a short-term solution to your long-term problem. A couple of low cost options for dental care include: [facility] in [place], calls [phone] for an appointment Or [facility] in [place], call [phone] for an appointment. Do not drink or drive while taking narcotic pain medication. Note that many narcotic pain relievers also contain Tylenol/acetaminophen. Please ensure that your total dose of acetaminophen from all sources does not exceed 3 g (3000 mg) per day. You may get constipated while on this medication. Take a stool softener such as Colace twice a day while you are on it. Also add an [id number] laxative such as senna or MiraLAX on any day that you do not have a bowel movement. If you received a narcotic pain medication or sedative while in the emergency department, do not drive for the next 24 hours. Your blood pressure was elevated today on check into the emergency department. This does not mean that you have hypertension, it is a common phenomenon to come to the emergency department and have elevated blood pressure. I recommend that you see your primary care physician within the week to have it rechecked when you are feeling better.
[2019-01-12 20:27] VITALS: BP 128/72
== END 2019-01-12 20:25 | disposition home or self-care (01) ==
LOC: ED 19:57
DX: K04.7 Periapical abscess without sinus (principal); H60.391 Other infective otitis externa, right ear; F17.200 Nicotine dependence, unspecified, uncomplicated
CPT/HCPCS: 99283; A9270

== ENCOUNTER 2019-02-18 10:18 | Emergency (ER) | payer MEDICAID ==
[2019-02-18 10:25] VITALS: BP 122/86
--- NOTE | 2019-02-18 12:29 | ED Physician Documentation ---
History of Present Illness - Stated complaint Stated Complaint: FIT FOR WORK - Chief complaint Chief Complaint: General - History obtained from History obtained from: Patient - History of Present Illness Timing: Today Pain level max: 0 Pain level now: 0 Improved by: nothing Worsened by: nothing - Additonal information Additional information: 33-year-old female presents to the emergency department stating that her daughter has xeyf-fqpg-jcd-mouth disease. Her work, [employer], sent her to the emergency department for a note saying that she can return to work. Patient has no symptoms. 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 - Allergies Allergies/Adverse Reactions: Allergies Allergy/AdvReac Type Severity Reaction Status Date / Time mushroom Allergy Mild Itching Verified 01/12/19 20:04 Penicillins Allergy Mild Rash Verified 02/18/19 10:25 - Social History Does the pt smoke?: Yes Smoking Status: Current every day smoker Does the pt drink ETOH?: Yes Does the pt have substance abuse?: Yes - Immunizations Immunizations are current?: Yes - POLST Patient has POLST: No PD ED PE NORMAL - Vitals Vital signs reviewed: Yes - General General: Alert and oriented X 3, No acute distress - HEENT HEENT: Moist mucous membranes, Pharynx benign (no lesions) - Neck Neck: Supple, no meningeal sign - Derm Derm: Warm and dry, No rash - Neuro Neuro: Alert and oriented X 3 - Psych Psych: Normal mood, Normal affect Results - Vitals Vitals: Vital Signs - 24 hr 02/18/19 10:23 Temperature 36.6 C Heart Rate 112 H Respiratory 20 Rate Blood Pressure 122/86 H O2 Saturation 100 Oxygen O2 Source Room air PD MEDICAL DECISION MAKING - ED course Complexity details: considered differential, d/w patient ED course: Patient with no signs of hjsq-jtsl-bnw-mouth disease. We will allow her to return to work. This document was made in part using voice recognition software. While efforts are made to proofread this document, sound alike and grammatical errors may occur. Departure - Departure Disposition: 01 Home, Self Care Clinical Impression: Encounter for medical screening examination Condition: Good Instructions: ED Screening Exam Medical Nonurgent Follow-Up: your,doctor as needed [Other] Forms: Activity restrictions
== END 2019-02-18 12:34 | disposition home or self-care (01) ==
LOC: ED 10:18
DX: Z02.89 Encounter for other administrative examinations (principal); F17.200 Nicotine dependence, unspecified, uncomplicated
CPT/HCPCS: 99281; 99282

== ENCOUNTER 2019-06-08 12:21 | Emergency (ER) | payer OTHER, MEDICAID ==
[2019-06-08 12:31] VITALS: BP 123/85
[2019-06-08] MEDS ORDERED: MELOXICAM 7.5 MG TABLET PO STA (12:56)
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
== END 2019-06-08 13:56 | disposition home or self-care (01) ==
LOC: ED 12:21
DX: S60.221A Contusion of right hand, initial encounter (principal); S90.31XA Contusion of right foot, initial encounter; V03.90XA Pedestrian on foot injured in collision with car, pick-up truck or van, unspecified whether traffic or nontraffic accident, initial encounter; F17.200 Nicotine dependence, unspecified, uncomplicated
CPT/HCPCS: 73130; 73630; 99283; 99284; A9270

== ENCOUNTER 2019-06-19 11:15 | Emergency (ER) | payer MEDICAID, OTHER ==
[2019-06-19 11:22] VITALS: BP 120/85
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
--- NOTE | 2019-06-19 13:15 | XRAY Report ---
Reason: foot inj, prox/medial Procedure Date: 06/19/2019 Accession Number: [id number] / [id number] Procedure: XR - Foot 3 View RT CPT Code: FULL RESULT: EXAM: RIGHT FOOT RADIOGRAPHY EXAM DATE: 06/19/2019 12:33 PM. CLINICAL HISTORY: Foot inj, prox/medial. COMPARISON: FOOT 3 VIEW RT 06/08/2019 1:03 PM. TECHNIQUE: 3 views. FINDINGS: Bones: Normal. No fractures or bone lesions. Joints: Normal. No subluxations. Soft Tissues: Mild soft tissue swelling. No soft tissue gas or foreign body. IMPRESSION: Soft tissue swelling. RADIA
== END 2019-06-19 13:40 | disposition home or self-care (01) ==
LOC: ED 11:15
DX: S93.601A Unspecified sprain of right foot, initial encounter (principal); S90.31XA Contusion of right foot, initial encounter; V03.90XA Pedestrian on foot injured in collision with car, pick-up truck or van, unspecified whether traffic or nontraffic accident, initial encounter; F17.200 Nicotine dependence, unspecified, uncomplicated
CPT/HCPCS: 99283

== ENCOUNTER 2019-07-06 12:50 | Emergency (ER) | payer MEDICAID, OTHER ==
[2019-07-06 12:59] VITALS: BP 132/91
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
== END 2019-07-06 15:10 | disposition left against medical advice (07) ==
LOC: ED 12:50
DX: Z53.21 Procedure and treatment not carried out due to patient leaving prior to being seen by health care provider (principal)

== ENCOUNTER 2019-10-25 12:55 | Emergency (ER) | payer OTHER, MEDICAID ==
[2019-10-25 13:08] VITALS: BP 119/65
--- NOTE | 2019-10-25 13:56 | XRAY Report ---
Reason: Trauma Procedure Date: 10/25/2019 Accession Number: [id number] / [id number] Procedure: XR - Knee 4 View LT CPT Code: Final Report FULL RESULT: EXAM: LEFT KNEE RADIOGRAPHY EXAM DATE: 10/25/2019 01:34 PM. CLINICAL HISTORY: Left knee pain. COMPARISON: None. TECHNIQUE: 4 views. FINDINGS: Bones: Normal. No fractures or bone lesions. Joints: Normal. No effusion. No subluxations. Soft Tissues: Normal. No soft tissue swelling. IMPRESSION: Normal knee radiography. RADIA
[2019-10-25] MEDS ORDERED: HYDROcod/ACETAM 5/325 MG TABLET PO STA (14:11)
--- NOTE | 2019-10-25 14:14 | ED Physician Documentation ---
PD HPI LOWER EXT INJURY - Stated complaint Stated Complaint: LT KNEE PX - Chief complaint Chief Complaint: Trauma Ext - History obtained from History obtained from: Patient - History of Present Illness PD HPI LOW EXT INJURY LOCATION: Left (She was at work today, she slipped and fell, her right knee sounds like it probably internally rotated and inverted and she has severe lateral knee pain now but can walk. 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 - Present Medications Home Medications: Ambulatory Orders Medication Instructions Recorded Confirmed Hydrocodone/Acetaminophen 1 - 2 each PO Q6H PRN #14 tablet 06/19/19 [Hydrocodon-Acetaminophen 5-325] Hydrocodone/Acetaminophen 1 - 2 each PO Q6H PRN #14 tablet 10/25/19 [Hydrocodon-Acetaminophen 5-325] - Allergies Allergies/Adverse Reactions: Allergies Allergy/AdvReac Type Severity Reaction Status Date / Time mushroom Allergy Mild Itching Verified 10/25/19 13:06 Penicillins Allergy Mild Rash Verified 10/25/19 13:06 - Social History Does the pt smoke?: Yes Smoking Status: Current every day smoker Does the pt drink ETOH?: Yes Does the pt have substance abuse?: No - Immunizations Immunizations are current?: Yes - POLST Patient has POLST: No PD ED PE NORMAL - Vitals Vital signs reviewed: Yes - General General: Alert and oriented X 3, No acute distress - Extremities Extremities: Other (Left knee is without effusion, tender along the lateral joint line, there is a lot of pain with LCL testing but no laxity of any ligaments. Positive grind testing.) - Neuro Neuro: Alert and oriented X 3, Normal speech Results - Vitals Vitals: Vital Signs - 24 hr 10/25/19 13:06 Temperature 36.8 C Heart Rate 86 Respiratory 15 Rate Blood Pressure 119/65 O2 Saturation 97 Oxygen O2 Source Room air - Rads (name of study) L knee 4v Radiology: EMP read contemporaneously (normal) PD MEDICAL DECISION MAKING - ED course ED course: 34-year-old woman with a work-related left knee internal derangement, x-rays negative. L&I paperwork was completed. She is placed in a knee immobilizer and advised on orthopedic follow-up. Departure - Departure Disposition: 01 Home, Self Care Clinical Impression: Internal derangement of left knee Condition: Good Record reviewed to determine appropriate education?: Yes Instructions: ED Sprain Knee Collateral Ligaments Follow-Up: [facility] [Provider Group] - Within 1 week Prescriptions: Hydrocodone/Acetaminophen [Hydrocodon-Acetaminophen 5-325] 1 - 2 each PO Q6H PRN #14 tablet PRN Reason: pain Forms: Activity restrictions
== END 2019-10-25 14:26 | disposition home or self-care (01) ==
LOC: ED 12:55
DX: M23.92 Unspecified internal derangement of left knee (principal); F17.200 Nicotine dependence, unspecified, uncomplicated
CPT/HCPCS: 1040M; 73564; 99283; A9270

== ENCOUNTER 2019-12-04 09:50 | Outpatient (CLI) | payer OTHER, MEDICAID ==
--- NOTE | 2019-12-04 16:40 | MRI Report ---
Reason: INTERNAL DERANGEMENT IN RT KNEE Procedure Date: 12/04/2019 Accession Number: [id number] / [id number] Procedure: MRI - Knee LT W/O CPT Code: Final Report FULL RESULT: EXAM: LEFT KNEE MRI WITHOUT CONTRAST EXAM DATE: 12/04/2019 10:46 AM. CLINICAL HISTORY: Internal derangement in left knee. Patient slipped at work 6 weeks ago. Knee instability. COMPARISON: None. TECHNIQUE: Multiplanar, multisequence T1-weighted and fluid-sensitive sequences of the knee without contrast. Other: None. FINDINGS: Bones: Mild marrow edema mid lateral femoral condyle. Trace marrow edema posterior aspect lateral tibial plateau. Articular Cartilage: Unremarkable. Medial Meniscus: The medial meniscus is intact. Lateral Meniscus: The lateral meniscus is intact. Cruciate Ligaments: Complete tear anterior cruciate ligament. Normal thickness intact posterior cruciate ligament. Collateral Ligaments: The medial collateral and lateral collateral ligamentous structures are intact. Tendons: The quadriceps, patellar, semimembranosus, and popliteus tendons are unremarkable. Musculature: No edema or fatty atrophy. Other: Small quantity of fluid the patellar recesses. No popliteal cyst. No loose bodies. The medial and lateral retinacula are intact. The subcutaneous tissues and fat pads are unremarkable. IMPRESSION: 1. Complete tear anterior cruciate ligament. 2. Negative for meniscus tear. RADIA
== END 2019-12-04 09:51 | disposition home or self-care (01) ==
LOC: DI 09:50
PROVIDERS: ATTEND Orthopaedic Surgery Sports Medicine
DX: S83.512A Sprain of anterior cruciate ligament of left knee, initial encounter (principal)

== ENCOUNTER 2020-01-07 08:47 | Outpatient (CLI) | payer OTHER, MEDICAID ==
--- NOTE | 2020-01-07 09:51 | XRAY Report ---
Reason: INTERNAL DERANGEMENT OF LT KNEE Procedure Date: 01/07/2020 Accession Number: [id number] / [id number] Procedure: XR - Knee 4 View LT CPT Code: Final Report FULL RESULT: EXAM: LEFT KNEE RADIOGRAPHY EXAM DATE: 01/07/2020 09:02 AM. CLINICAL HISTORY: INTERNAL DERANGEMENT OF LT KNEE. COMPARISON: KNEE 4 VIEW LT 10/25/2019 1:23 PM. TECHNIQUE: 4 views. FINDINGS: Bones: No fracture or focal bony lesion. Joints: No evidence of dislocation. No significant degenerative disease. Soft Tissues: No unexpected soft tissue findings. IMPRESSION: No evidence of fracture or dislocation. RADIA
== END 2020-01-07 08:48 | disposition home or self-care (01) ==
LOC: DI 08:47
PROVIDERS: ATTEND Orthopaedic Surgery Sports Medicine
DX: M23.92 Unspecified internal derangement of left knee (principal)

== ENCOUNTER 2020-04-11 11:51 | Outpatient (CLI) | payer MEDICAID | END 2020-04-11 11:52 | disposition home or self-care (01) | LOC: LAB 11:51 | PROVIDERS: ATTEND Orthopaedic Surgery | DX: Z01.812 Encounter for preprocedural laboratory examination (principal); S83.512A Sprain of anterior cruciate ligament of left knee, initial encounter; Z20.828 Contact with and (suspected) exposure to other viral communicable diseases | CPT/HCPCS: 81599 ==

== ENCOUNTER 2020-04-13 06:14 | Day surgery (SDC) | payer MEDICAID, OTHER ==
[2020-04-13] MEDS ORDERED: LACTATED RINGERS 1,000 ML IV ONE (06:27)
[2020-04-13] MEDS ORDERED: ACETAMINOPHEN 1,000 MG/100 ML 100 ML IV ONE (06:30)
[2020-04-13] MEDS ORDERED: CELECOXIB 100 MG CAPSULE PO ONE (06:30)
[2020-04-13 06:50] LABS: HCG UR QUAL NEGATIVE
[2020-04-13 06:52] VITALS: BP 128/72
[2020-04-13] MEDS ORDERED: CEFAZOLIN SODIUM IN 0.9 % NACL 0 GM/0 ML BAG IV ONE (07:00)
[2020-04-13] MEDS ORDERED: EPINEPHrine 1 MG/ML AMP ONE (07:12)
--- NOTE | 2020-04-13 07:12 | ANESTHESIA ---
Pre-Anesthesia VS, & Labs - Diagnosis left ACL rupture - Procedure ACL reconstruction, arthroscopic Vital Signs: Temp Pulse Resp BP Pulse Ox 36.4 C L 77 17 128/72 98 04/13/20 06:48 04/13/20 06:48 04/13/20 06:48 04/13/20 06:48 04/13/20 06:48 Height 5 ft 4 in Weight (kg) 89 kg Body Mass Index 27.4 - NPO >8 hours - Is Patient ?: No Home Medications and Allergies Home Medications: Ambulatory Orders No Known Home Medications 04/06/20 No Known Home Medications 04/06/20 Allergies/Adverse Reactions: Allergies Allergy/AdvReac Type Severity Reaction Status Date / Time mushroom Allergy Mild Itching, Verified 04/06/20 12:04 rash Penicillins Allergy Mild Unknown Verified 04/06/20 12:04 Anes History & Medical History - Anesthetic History Anesthesia Complications: reports: No previous complications Family history of Anesthesia Complications: Denies - Medical History Cardiovascular: reports: None Pulmonary: reports: None Gastrointestinal: reports: None Urinary: reports: None Neuro: reports: None Musculoskeletal: reports: None Endocrine/Autoimmune: reports: None Blood Disorders: reports: None Skin: reports: Eczema Smoking Status: Current every day smoker - Surgical History Gynecologic: Tubal ligation Exam General: Alert Dental: WNL Mouth Opening: Greater than 4 Fingerbreadths Mallampati classification: I Thyromental Distance: greater than 6 cm Respiratory: Lungs clear Cardiovascular: Regular rate Plan Anesthesia Type: General, Femoral Block, Adductor Block (FNB or ACB is surgeon agrees) Consent for Procedure(s) Verified and Reviewed: Yes Code Status: Attempt Resuscitation ASA classification: 2-Mild systemic disease Is this case an emergency?: No
--- NOTE | 2020-04-13 07:45 | PROVIDER PROGRESS NOTE ---
Subjective - General Procedure Date: 09/30/17 Post Op Days: 926 Procedure Performed: procedure to right knee cancelled due to rash over surgical site - Review of Systems Skin: positive: Other (erythematous rash over anterior aspect right knee beginning last nite or this morning by patient history; it was associated with shaving her knee area and use of hibiclens that was given to her. There is no drainage from rash area.) Objective - Patient Data Vital Signs: Vital Signs x48h Temp Pulse Resp BP Pulse Ox 04/13/20 06:48 36.4 C L 77 17 128/72 98 Weight: Weight 04/11/20 04/12/20 04/13/20 23:59 23:59 23:59 Weight (kg) 89 kg - Lab Results Other Lab Results: Lab Results x24hrs 04/13/20 Range/Units 06:27 Ur Specific [place] >=1.030 H (1.002-1.030) Urine HCG, Qual NEGATIVE - Physical Exam Skin: positive: Warm, Dry, Skin rash, Other (erythematous maculopapular appearing rash over anterior aspect of right knee over several cm. area from inferior patella to distal thigh; no drainage or sign of infection) Extremities: positive: Full ROM, Other (previous exam with positive eliana and anterior drawer, atrophy distal thigh) Neurologic/Psychiatric: positive: Other (anger, anxiety, frustration over home and social issues; lack of help at home, absence from work) Impression/Plan - Problem List Problem List: Dermatitis over surgical site left knee This is either from shaving or use of hibiclens preop or both Recommend surgery be delayed until rash fully resolves to avoid potential surgical site infection Pt is very upset; spent 20 minutes or more listening to her frustration; I suggest social media community manager see her on urgent basis to help with home problems Anterior cruciate ligament rupture, chronic This is an elective case, risk of infection is unacceptable with rash over surgical site; i would like to see her in clinic tomorrow and reschedule surgery for next week if rash has resolved
[2020-04-13] MEDS ORDERED: SCOPOLAMINE PATCH TOP SCH (08:00)
== END 2020-04-13 06:15 | disposition home or self-care (01) ==
LOC: SDS 06:14
PROVIDERS: ATTEND Orthopaedic Surgery
DX: S83.512A Sprain of anterior cruciate ligament of left knee, initial encounter (principal); R21 Rash and other nonspecific skin eruption; Z53.09 Procedure and treatment not carried out because of other contraindication
CPT/HCPCS: 81025; A9270; J0131; J7120

== ENCOUNTER 2020-04-15 13:45 | Outpatient (CLI) | payer MEDICAID | END 2020-04-15 13:46 | disposition home or self-care (01) | LOC: LAB 13:45 | PROVIDERS: ATTEND Physician Assistant | DX: M23.52 Chronic instability of knee, left knee (principal); Z20.828 Contact with and (suspected) exposure to other viral communicable diseases ==

== ENCOUNTER 2020-04-20 06:31 | Day surgery (SDC) | payer OTHER ==
[~2020-04-20 06:31] MED LIST: ACETAMINOPHEN 1,000 MG/100 ML 100 ML IV ONE; CEFAZOLIN SODIUM IN 0.9 % NACL 2 GM/100 ML BAG IV ONE; CELECOXIB 100 MG CAPSULE PO ONE
[2020-04-20] MEDS ORDERED: LIDOCAINE-MPF 2% 5 ML VIAL IM ONE (06:32)
[2020-04-20] MEDS ORDERED: ACETAMINOPHEN 1,000 MG/100 ML 100 ML IV ONE (06:32)
[2020-04-20] MEDS ORDERED: MIDAZOLAM 2 MG/2 ML VIAL IVP ONE (06:32)
[2020-04-20] MEDS ORDERED: ONDANSETRON 4 MG/2 ML VIAL IVP ONE (06:32)
[2020-04-20] MEDS ORDERED: fentaNYL 100 MCG/2 ML VIAL IVP ONE (06:32)
[2020-04-20] MEDS ORDERED: KETOROLAC 30 MG/ML VIAL IVP ONE (06:32)
[2020-04-20] MEDS ORDERED: PROPOFOL 200 MG/20 ML VIAL IVP ONE (06:32)
[2020-04-20] MEDS ORDERED: LACTATED RINGERS 1,000 ML IV ONE ×5 (06:35→10:37)
[2020-04-20 06:50] LABS: HCG UR QUAL NEGATIVE
--- NOTE | 2020-04-20 06:59 | ANESTHESIA ---
Pre-Anesthesia VS, & Labs - Diagnosis ACL rupture left - Procedure left ACL repair Vital Signs: Temp Pulse Resp BP Pulse Ox 36.2 C L 87 16 122/74 98 04/20/20 06:50 04/20/20 06:50 04/20/20 06:50 04/20/20 06:50 04/20/20 06:50 Height 5 ft 4 in Weight (kg) 89 kg Body Mass Index 27.4 - NPO >8 hours - Is Patient ?: No Home Medications and Allergies No Known Home Medications 04/06/20 Allergies/Adverse Reactions: Allergies Allergy/AdvReac Type Severity Reaction Status Date / Time mushroom Allergy Mild Itching, Verified 04/06/20 12:04 rash Penicillins Allergy Mild Unknown Verified 04/06/20 12:04 chlorhexidine Allergy Rash Verified 04/13/20 14:27 [From Hibiclens] Anes History & Medical History - Anesthetic History Anesthesia Complications: reports: No previous complications Family history of Anesthesia Complications: Denies Family history of Malignant Hyperthermia: Denies - Medical History Cardiovascular: reports: None Pulmonary: reports: None Gastrointestinal: reports: None Urinary: reports: None Neuro: reports: None Musculoskeletal: reports: None Endocrine/Autoimmune: reports: None Blood Disorders: reports: None Skin: reports: None, Eczema Smoking Status: Current every day smoker (1/2ppd x15 years) Psychosocial: reports: Cannabis (marijuna edible once a week) - Surgical History Gynecologic: Tubal ligation Exam General: Alert, Oriented x3, Cooperative, No acute distress Dental: WNL Mouth Openin Fingerbreadth Neck Mobility: Normal Mallampati classification: III Respiratory: Lungs clear, Normal breath sounds, No respiratory distress, No accessory muscle use Cardiovascular: Regular rate, Normal S1, Normal S2, No murmurs Abdomen: Normal bowel sounds, Soft, No tenderness, No hepatospenomegaly, No masses Extremities: No clubbing, No cyanosis, No edema, Normal pulses, No tenderne ss/swelling Neurological: Normal gait, Normal speech, Strength at 5/5 X4 ext, Normal tone, Sensation intact, Cranial nerves 3-12 NL, Reflexes 2+ Mental/Cognitive Status: Alert/Oriented X3, Normal for patient Cognitive Status: Within normal limits Plan Anesthesia Type: General, Adductor Block Consent for Procedure(s) Verified and Reviewed: Yes Code Status: Attempt Resuscitation ASA classification: 2-Mild systemic disease Is this case an emergency?: No
[2020-04-20] MEDS ORDERED: ROPIVACAINE 0.5% PF 20 ML AMPULE ONE (07:07)
[2020-04-20] MEDS ORDERED: BUPIVACAINE 0.25% PF 30 ML VIAL ONE (07:22)
[2020-04-20] MEDS ORDERED: BACITRACIN 50,000 UNIT VIAL ONE (07:32)
[2020-04-20] MEDS ORDERED: SODIUM CHLORIDE 0.9% 10 ML ONE (07:33)
[2020-04-20] MEDS ORDERED: METHYLENE BLUE 0.5% 50 MG/10 ML AMPULE ONE (08:59)
[2020-04-20] MEDS ORDERED: BUPIVACAINE 0.25% PF 30 ML VIAL SUBQ ONE (12:23)
--- NOTE | 2020-04-20 12:51 | OPERATIVE REPORT ---
Operative Report - General Procedure Date: 04/20/20 Planned Procedure: left knee anterior cruciate ligament reconstruction with cadaver graft, arthroscopy left knee Pre-Op Diagnosis: Complete anterior cruciate ligament tear left knee Procedure Performed: Anterior cruciate ligament reconstruction left knee usingArthroscopic assisted bone patellar bone cadaver graft Post Op Diagnosis: Same as preop - Procedure Note Primary Surgeon: Dr. Seymour Hdez Secondary Surgeon: ALEX Real Anesthesia Provider: Iker Duncan Anesthesia Technique: General mask, Regional block Estimated Blood Loss (mL): 25 Indications: This is a 34-year-old woman with work-related injury left knee several months ago. She has been identified as having an anterior cruciate ligament complete tear by MRI. Her clinical exam is also consistent as it is abnormal for pos itive Lockman test. She had no joint line tenderness and no sign of meniscal injury. She has tried conservative treatment with bracing and physical therapy. She has sensations of instability to left knee. She is nonathletic and the options for autogenous versus cadaver graft were discussed prior to surgery and she has elected for the cadaver graft. Findings: There was a complete rupture of the anterior cruciate ligament at the femoral attachment site. The distal segment had scarred down to the lateral notch and posterior cruciate ligament. The patellofemoral joint appeared normal. The medial lateral gutters were normal. The medial and lateral menisci were normal. The posterior cruciate ligament was normal. 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 Complications: None noted - Other Other Information/Narrative: The patient was brought to the operating room and is given a femoral nerve block and general anesthetic. The left lower extremity was prepped and draped in a sterile manner in the usual fashion. The right leg was placed in a well-leg méndez. The foot of the table was dropped, patient was placed in some reverse Trendelenburg, lateral thigh positioner was applied to the operating room table and a padded bag was placed beneath the left thigh. A timeout procedure was performed by the entire operating room team and all were in agreement. The cadaver bone patellar bone graft was soaked in saline and some bacitracin. The bone blocks were trimmed to 20 mm in length and 9 mm in diameter. Complete diagnostic arthroscopy was initiated. Although tourniquet had been applied th ere was not utilized during surgery. A 3 portal arthroscopic technique was utilized. The anteromedial portal was used for the outflow portal. The anterolateral portal was used mostly for the diagnostic arthroscope. The anteromedial portal was used for instrument portal and diagnostic arthroscope. Complete diagnostic arthroscopy was performed through the anterolateral portal. The findings have been noted above. The abnormal findings were the complete rupture of the femoral attachment of the anterior cruciate ligament. The anterior cruciate ligament was resected using a combination of radiofrequency probe and the full-radius tremor. A wall plasty was performed to the lateral notch removing approximately 1Millimeter of bone. The intercondylar Ridge to the lateral notch was identified.The tibial side of the anterior cruciate ligament remnant was left in place for the tibial tunnel site. The femoral side of the cadaver graft was prepared with an Arthrex tight rope and Endo button. The retrograde femoral guide was inserted into the lateral notch with the scope and the anteromedial portal. The cannula was advanced against the lateral cortex. The bull's-eye tip was utilized and placed so that was about 3 to 4 mm from the posterior articular surface and just below the intercondylar ridge. The flip cutter was then drilled into the joint. The guide was removed and the flip cutter guide was impacted 7 mm into bone. Retrograde drilling of 25 mm was done using a 9.5 mm diameter to the flip cutter. A fiber stick suture was placed through the femoral tunnel and brought out through the anterolateral portal.The tibial tunnel was then drilled and a antegrade fashion using a incision between the tibial tubercle and medial collateral ligament approximately 10 mm distal to the proximal portion of the tibial tubercle. The guide was placed in the angle of about 55 degrees and position slightly medial to the lateral tibial tubercle. A guidepin was inserted through the guide into the joint and then a cannulated drill was used to make a 10 mm hole into the joint.The graft was advanced with the femoral bone plug being tapered to a bullet point. The bone tendon junction had been marked with methylene blue. The fiber stitch was brought out through the tibial tunnel and the graft was advanced into the joint with the knee in flexion. A second probe was used to position the bone plug into the femoral tunnel and then it was advanced into the femoral socket. An incision was made over the button site to make sure it had flipped. The tibial side was tensioned to make sure that the Endobutton had flipped against the lateral cortex of the distal femur.The white sutures of the tight rope were then individually tensioned to advance the graft. The graft was then cycled several times with tension on the tibial side. On the tibial side the bone plug was protruding beyond the tunnel and had to be shortened partially. A 11 x 30 mm interference screw was inserted into the posterior aspect of the tibial tunnel to secure the graft and the Arthrex #2 FiberWire suture was taken and secured from the tibial bone plug into a Arthrex swivel lock anchor to bone. This provided dual fixation to the tibial side of the graft. This seemed to give good stability at both the femoral and tibial sites. TheThe Lockman's test was normal after fixation of the graft and there was good range of motion and stability to left knee. A gentle pivot shift was performed and it was negative.The preoperative exam under general anesthesia was positive for both Lockman and a mild lateral pivot shift test and both of these were eliminated after the graft to fixation. The incision sites were closed with 2-0 Vicryl subcutaneous and stainless steel carlos. 10 cc of quarter percent Marcaine was injected into the incision sites. Xeroform, sterile gauze and Walker wrap was applied to the left knee. A long-leg hinged knee brace was applied with the knee in about 10 degrees of flexion. She received Ancef as a prophylactic antibiotic prior to the incision and an additional dose toward the end of the procedure. She received a total of 4 g of Ancef intravenously. Tolerated procedure wellProcedure was doneThe with a physician staff physical therapy assistant who helped prepare the graft, provide exposure and graft passage.
[2020-04-20] MEDS: HYDROmorphone 1 MG/ML CARPUJECT ONE ×2 (13:02→13:33)
[2020-04-20] MEDS ORDERED: ONDANSETRON 4 MG/2 ML VIAL ONE (13:09)
[2020-04-20] MEDS ORDERED: DEXAMETHASONE 4 MG/ML VIAL ONE (13:26)
[2020-04-20] MEDS ORDERED: SCOPOLAMINE PATCH TOP ONE (13:27)
[2020-04-20 14:26] VITALS: BP 107/77
== END 2020-04-20 06:32 | disposition home or self-care (01) ==
LOC: SDS 06:31
PROVIDERS: ATTEND Orthopaedic Surgery
DX: S83.512A Sprain of anterior cruciate ligament of left knee, initial encounter (principal); F17.210 Nicotine dependence, cigarettes, uncomplicated
CPT/HCPCS: 29888; 81025; A9270; J0131; J0690; J1170; J3490; J7120

== ENCOUNTER 2020-07-20 08:53 | Emergency (ER) | payer MEDICAID ==
[2020-07-20 09:09] VITALS: BP 117/84
--- NOTE | 2020-07-20 09:34 | ED Physician Documentation ---
History of Present Illness - Stated complaint Stated Complaint: LT EAR/FACE PX - Chief complaint Chief Complaint: Heent - History obtained from History obtained from: Patient - Additonal information Additional information: Severe left ear pain for 5 days. She has frequent otitis media. No fevers. She tried treating it at home with ibuprofen and watchful waiting which was not successful. 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 : None HEENT: Chronic vision loss, Other Psych: Depression, Anxiety, Post traumatic stress disorder Musculoskeletal: None Derm: None, Eczema - Past Surgical History Past Surgical History: Yes /SCALLOP DREDGER: Tubal ligation - Present Medications Home Medications: Ambulatory Orders Medication Instructions Recorded Confirmed Oxycodone HCl/Acetaminophen 1 - 2 each PO Q6H PRN #14 tablet 07/20/20 [Percocet 5-325 mg Tablet] Sulfamethoxazole/Trimethoprim 1 each PO BID 10 Days #20 tablet 07/20/20 [Sulfamethoxazole-Tmp Ds Tablet] - Allergies Allergies/Adverse Reactions: Allergies Allergy/AdvReac Type Severity Reaction Status Date / Time mushroom Allergy Mild Itching, Verified 04/06/20 12:04 rash Penicillins Allergy Mild Unknown Verified 04/06/20 12:04 chlorhexidine Allergy Rash Verified 04/13/20 14:27 [From Hibiclens] - Social History Does the pt smoke?: Yes Smoking Status: Current every day smoker (1/2ppd x15 years) Does the pt drink ETOH?: Yes Does the pt have substance abuse?: No - Immunizations Immunizations are current?: Yes - POLST Patient has POLST: No PD ED PE NORMAL - Vitals Vital signs reviewed: Yes - General General: Alert and oriented X 3, No acute distress - HEENT HEENT: Other (Severe left otitis media, right TM normal) - Neuro Neuro: Alert and oriented X 3, Normal speech - Psych Psych: Normal mood, Normal affect Results - Vitals Vitals: Vital Signs - 24 hr 07/20/20 09:03 Temperature 36.8 C Heart Rate 66 Respiratory 20 Rate Blood Pressure 117/84 H O2 Saturation 99 Oxygen O2 Source Room air Departure - Departure Disposition: Home, Self Care Clinical Impression: LOM (left otitis media) Qualifiers: Otitis media type: suppurative Chronicity: acute Recurrence: recurrent Spontaneous tympanic membrane rupture: without spontaneous rupture Qualified Code(s): H66.005 - Acute suppurative otitis media without spontaneous rupture of ear drum, recurrent, left ear Condition: Good Record reviewed to determine appropriate education?: Yes Instructions: ED Otitis Media Acute Adult Prescriptions: Oxycodone HCl/Acetaminophen [Percocet 5-325 mg Tablet] 1 - 2 each PO Q6H PRN #14 tablet PRN Reason: pain Sulfamethoxazole/Trimethoprim [Sulfamethoxazole-Tmp Ds Tablet] 1 each PO BID 10 Days #20 tablet Comments: Seems reasonable given the frequent ear infections to follow-up with an ear nose and throat physician, the closest to you is in [place], the phone number is [phone]. Return for new or worsening symptoms.
== END 2020-07-20 09:41 | disposition home or self-care (01) ==
LOC: ED 08:53
DX: H66.005 Acute suppurative otitis media without spontaneous rupture of ear drum, recurrent, left ear (principal); F17.200 Nicotine dependence, unspecified, uncomplicated
CPT/HCPCS: 99282; 99283

== ENCOUNTER 2020-08-16 08:57 | Emergency (ER) | payer MEDICAID ==
[2020-08-16] MEDS ORDERED: ONDANSETRON 4 MG/2 ML VIAL IVP STA (09:44)
--- NOTE | 2020-08-16 11:25 | ED Physician Documentation ---
History of Present Illness - Stated complaint Stated Complaint: VOMETING/FEVER - Chief complaint Chief Complaint: General - History obtained from History obtained from: Patient - Additonal information Additional information: Pt comes to emergency department for chief complaint of employer wants her to get tested for Covid. Patient states [place] and that she has had diarrhea and vomiting over the last few days. She states that actually, her diarrhea and vomiting are quite a bit better and that she had 1 day of fever up to 101, but this is also improved. Patient states that her entire family has had the same illness and that everybody has gotten better. She denies any other complaints at this time. Review of Systems Ten Systems: 10 systems reviewed and negative Constitutional: reports: Fever, Reviewed and negative Eyes: reports: Reviewed and negative Ears: reports: Reviewed and negative Nose: reports: Reviewed and negative Throat: reports: Reviewed and negative Cardiac: reports: Reviewed and negative Respiratory: reports: Reviewed and negative GI: reports: Nausea, Vomiting, Diarrhea, Reviewed and negative : reports: Reviewed and negative Skin: reports: Reviewed and negative Musculoskeletal: reports: Reviewed and negative Neurologic: reports: Reviewed and negative Psychiatric: reports: Reviewed and negative Endocrine: reports: Reviewed and negative Immunocompromised: reports: Reviewed and negative PD PAST MEDICAL HISTORY - Past Medical History Past Medical History: Yes Cardiovascular: None Respiratory: None Neuro: None Endocrine/Autoimmune: None GI: None 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 : None HEENT: Chronic vision loss, Other Psych: Depression, Anxiety, Post traumatic stress disorder Musculoskeletal: None Derm: None, Eczema - Past Surgical History Past Surgical History: Yes /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 ABSORBER 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: Tubal ligation - Present Medications Home Medications: Ambulatory Orders Medication Instructions Recorded Confirmed Oxycodone HCl/Acetaminophen 1 - 2 each PO Q6H PRN #14 tablet 07/20/20 [Percocet 5-325 mg Tablet] Sulfamethoxazole/Trimethoprim 1 each PO BID 10 Days #20 tablet 07/20/20 [Sulfamethoxazole-Tmp Ds Tablet] - Allergies Allergies/Adverse Reactions: Allergies Allergy/AdvReac Type Severity Reaction Status Date / Time mushroom Allergy Mild Itching, Verified 08/16/20 09:15 rash Penicillins Allergy Mild Unknown Verified 08/16/20 09:15 chlorhexidine Allergy Rash Verified 08/16/20 09:15 [From Hibiclens] - Social History Does the pt smoke?: Yes Smoking Status: Current every day smoker Does the pt drink ETOH?: Yes Does the pt have substance abuse?: No - Immunizations Immunizations are current?: Yes - POLST Patient has POLST: No PD ED PE NORMAL - Vitals Vital signs reviewed: Yes - General General: Alert and oriented X 3, No acute distress - HEENT HEENT: Atraumatic, PERRL, EOMI, Moist mucous membranes - Neck Neck: Supple, no meningeal sign - Cardiac Cardiac: RRR, No murmur, Strong equal pulses - Respiratory Respiratory: No respiratory distress, Clear bilaterally - Abdomen Abdomen: Soft, Non tender, Non distended - Derm Derm: Warm and dry - Extremities Extremities: No deformity - Neuro Neuro: Alert and oriented X 3 - Psych Psych: Normal mood, Normal affect Results - Vitals Vitals: Vital Signs - 24 hr 08/16/20 08/16/20 09:08 09:44 Temperature 36.8 C 36.7 C Heart Rate 98 96 Respiratory 18 16 Rate Blood Pressure 115/65 110/72 O2 Saturation 99 98 Oxygen O2 Source Room air PD MEDICAL DECISION MAKING - ED course Complexity details: reviewed results, re-evaluated patient, considered differential, d/w patient ED course: The pt was very well-appearing in the ED, but I did order a Covid swab on her. We have discussed quarantine until her test results return. We discussed home management of symptoms, as well as the usual indications for return. Departure - Departure Disposition: 01 Home, Self Care Clinical Impression: Diarrhea Qualifiers: Diarrhea type: unspecified type Qualified Code(s): R19.7 - Diarrhea, unspecified Fever Qualifiers: Fever type: unspecified Qualified Code(s): R50.9 - Fever, unspecified Vomiting Qualifiers: Vomiting type: unspecified Vomiting Intractability: non-intractable Nausea presence: with nausea Qualified Code(s): R11.2 - Nausea with vomiting, unspecified Condition: Stable Instructions: ED Nausea Vomiting Comments: You have been tested for Covid today. You will most likely have results within 24 hours, though sometimes it takes as long as 48 hours. If your results are positive, you will be contacted at home. If your results are negative, we will not automatically contact you, so if you do not hear back within 48 hours, please contact the hospital for your results.
[2020-08-16 11:35] VITALS: BP 112/70
== END 2020-08-16 11:42 | disposition home or self-care (01) ==
LOC: ED 08:57
DX: R19.7 Diarrhea, unspecified (principal); R50.9 Fever, unspecified; R11.2 Nausea with vomiting, unspecified; Z20.828 Contact with and (suspected) exposure to other viral communicable diseases; F17.200 Nicotine dependence, unspecified, uncomplicated
CPT/HCPCS: 80053; 83690; 85025; 99283

== ENCOUNTER 2020-08-20 22:22 | Outpatient (CLI) | payer MEDICAID | END 2020-08-20 22:23 | disposition critical access hospital (66) | LOC: EMS 22:22 | PROVIDERS: ATTEND Surgery | DX: S51.812A Laceration without foreign body of left forearm, initial encounter (principal); W45.8XXA Other foreign body or object entering through skin, initial encounter; Y93.G1 Activity, food preparation and clean up; Y92.039 Unspecified place in apartment as the place of occurrence of the external cause | CPT/HCPCS: A0425; A0429; A0999 ==

== ENCOUNTER 2020-08-20 22:41 | Emergency (ER) | payer MEDICAID ==
[2020-08-20 22:53] VITALS: BP 103/91
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
== END 2020-08-21 00:25 | disposition left against medical advice (07) ==
LOC: EDUNIT# → ED 22:41
DX: S51.812A Laceration without foreign body of left forearm, initial encounter (principal); Z53.29 Procedure and treatment not carried out because of patient's decision for other reasons

== ENCOUNTER 2020-08-21 01:19 | Emergency (ER) | payer MEDICAID ==
[2020-08-21] MEDS ORDERED: BUFFERED LIDOCAINE 10 ML SYRINGE IU ONE (01:36)
--- NOTE | 2020-08-21 01:42 | ED Physician Documentation ---
PD HPI UPPER EXT INJURY - Stated complaint Stated Complaint: FOREARM LAC - Chief complaint Chief Complaint: General - History obtained from History obtained from: Patient - History of Present Illness Location: Left, Forearm Type of injury: Laceration Where injury occurred: Home Timing - details: Abrupt onset Associated symptoms: No: Weakness, Numbness - Additonal information Additional information: eloped from this ED and went to the waiting room and called 911 from there. Police arrived and were able to talk patient into returning to ED for repair of left FA laceration. She is calm and cooperative and agreeable to allowing me to repair the laceration. She confirms that this was caused by accidental slip of a pizza cutter when trying to cut a pizza at home tonight. 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: Tubal ligation - Present Medications Home Medications: Ambulatory Orders Medication Instructions Recorded Confirmed Oxycodone HCl/Acetaminophen 1 - 2 each PO Q6H PRN #14 tablet 07/20/20 [Percocet 5-325 mg Tablet] Sulfamethoxazole/Trimethoprim 1 each PO BID 10 Days #20 tablet 07/20/20 [Sulfamethoxazole-Tmp Ds Tablet] - Allergies Allergies/Adverse Reactions: Allergies Allergy/AdvReac Type Severity Reaction Status Date / Time mushroom Allergy Mild Itching, Verified 08/21/20 01:26 rash Penicillins Allergy Mild Unknown Verified 08/21/20 01:26 chlorhexidine Allergy Rash Verified 08/21/20 01:26 [From Hibiclens] - Social History Does the pt smoke?: Yes Smoking Status: Current every day smoker Does the pt drink ETOH?: Yes Does the pt have substance abuse?: No - Immunizations Immunizations are current?: Yes - POLST Patient has POLST: No PD ED PE NORMAL - Vitals Vital signs reviewed: Yes - General General: Alert and oriented X 3, No acute distress, Well developed/nourished - Neuro Neuro: No motor deficit (FROM and strength of left wrist and fingers flexion and extension, LTS intact in hand and fingers, all surfaces) PD ED PE EXPANDED - Extremities KELL UE/Hands Visual: 1 - laceration (7 cm length laceration with exposed adipose tissue, no active bleeding) Results - Vitals Vitals: Vital Signs - 24 hr 08/21/20 08/21/20 01:24 02:25 Temperature 36.4 C L 36.6 C Heart Rate 98 97 Respiratory 22 18 Rate Blood Pressure 129/82 H 148/85 H O2 Saturation 99 96 Oxygen O2 Source Room air Procedures - Laceration (location) Upper extremity left Anterior Length in cm: 7 Wound type: Linear Neurovascular status: Sensory intact, Motor intact, Vascular intact Tendon involvement: Tendon intact Anesthesia: Lidocaine 1%, With bicarb Wound Preparation: Chlorhexadine Skin layer closure: Nylon, Running, Size #-0 - enter number (3-0) Other: Patient tolerated well, No complications, Neurovascular intact, Dressing applied, Tetanus UTD Complexity: Simple PD MEDICAL DECISION MAKING - ED course Complexity details: reviewed results, re-evaluated patient, considered differential, d/w patient ED course: Patient returns after eloping from ED. She is calm, cooperative on this visit and thanks me at end of this encounter for repairing the wound, and I thanked her for returning and allowing me to repair this long and deep laceration. Departure - Departure Disposition: 01 Home, Self Care Clinical Impression: Laceration of forearm, left Qualifiers: Encounter type: initial encounter Qualified Code(s): S51.812A - Laceration without foreign body of left forearm, initial encounter Condition: Good Instructions: ED Laceration Ext Sutr Stap Tape Comments: Follow up with your primary care provider in 9-10 days for removal of the stitches. Discharge Date/Time: 08/21/20 02:27
[2020-08-21] MEDS ORDERED: BACITRACIN ZINC OINT 1 PACKET TOP STA (02:10)
[2020-08-21 02:27] VITALS: BP 148/85
== END 2020-08-21 02:27 | disposition home or self-care (01) ==
LOC: ED 01:19
DX: S51.812A Laceration without foreign body of left forearm, initial encounter (principal); W27.4XXA Contact with kitchen utensil, initial encounter; Y93.89 Activity, other specified; Y92.009 Unspecified place in unspecified non-institutional (private) residence as the place of occurrence of the external cause; F17.200 Nicotine dependence, unspecified, uncomplicated
CPT/HCPCS: 12002; 99282; A9270

== ENCOUNTER 2020-09-02 15:02 | Outpatient (CLI) | payer MEDICAID ==
--- NOTE | 2020-09-02 15:42 | XRAY Report ---
PROCEDURE: Knee 3 View LT INDICATIONS: Hx OF FALLING? LT KNEE INJ TECHNIQUE: 3 views of the left knee(s) were acquired. COMPARISON: 01/07/2020 FINDINGS: Bones: Patient is status post interval ACL reconstruction surgery with postsurgical changes. Alignmen t of left knee is anatomic. No gross hardware loosening or failure. No fractures or dislocations. No suspicious bony lesions. Soft tissues: No joint effusion. No suspicious soft tissue calcifications. IMPRESSION: No acute left knee fracture or dislocation. Prior ACL repair with anatomic left knee ali gnment. No gross hardware complication. No significant joint effusion. Reviewed by: Dimitry Iniguez MD on 09/02/2020 3:40 PM PST Approved by: Dimitry Iniguez MD on 09/02/2020 3:40 PM PST Station ID: [id number]
== END 2020-09-02 23:59 | disposition home or self-care (01) ==
LOC: DI.N 15:02
PROVIDERS: ATTEND Nurse Practitioner
DX: Z91.81 History of falling (principal)

== ENCOUNTER 2021-08-17 08:00 | Outpatient (CLI) | payer MEDICAID ==
[2021-08-17 17:47] LABS: BASOPHILS # (AUTO) 0.1 10^3/uL (0.0-0.1); BASOPHILS % (AUTO) 0.9 %; EOSINOPHILS # (AUTO) 0.2 10^3/uL (0.0-0.7); EOSINOPHILS % (AUTO) 2.7 %; HCT - HEMATOCRIT 41.2 % (37.0-47.0); HGB - HEMOGLOBIN 13.9 g/dL (12.0-16.0); LYMPHOCYTES # (AUTO) 2.4 10^3/uL (1.5-3.5); LYMPHOCYTES % (AUTO) 35.6 %; MEAN CORPUSCULAR HEMOGLOBIN 32.2 pg (27.0-31.0); MEAN CORPUSCULAR HGB CONC 33.7 g/dL (32.0-36.0); MEAN CORPUSCULAR VOLUME 95.4 fL (81.0-99.0); MEAN PLATELET VOLUME 11.5 fL (7.9-10.8); MONOCYTES # (AUTO) 0.5 10^3/uL (0.0-1.0); MONOCYTES % (AUTO) 7.4 %; NEUTROPHILS # (AUTO) 3.5 10^3/uL (1.5-6.6); NEUTROPHILS % (AUTO) 53.2 %; PLT - PLATELET COUNT 202 10^3/uL (130-450); RED BLOOD COUNT 4.32 10^6/uL (4.20-5.40); RED CELL DISTRIBUTION WIDTH 12.4 % (12.0-15.0); WHITE BLOOD COUNT 6.6 x10^3/uL (4.8-10.8)
[2021-08-17 18:20] LABS: CRP - C-REACTIVE PROTEIN < 1.0 mg/dL (0-1.0); URIC ACID 3.5 mg/dL (2.6-7.2)
[2021-08-17 18:50] LABS: RHEUMATOID FACTOR NEGATIVE (Negative)
== END 2021-08-17 23:59 | disposition home or self-care (01) ==
LOC: LAB.WCP 08:00
PROVIDERS: ATTEND Family Medicine
DX: M25.50 Pain in unspecified joint (principal)
CPT/HCPCS: 36415; 84550; 85025; 85651; 86140; 86200; 86430

== ENCOUNTER 2021-12-23 16:00 | Outpatient (CLI) | payer MEDICAID | END 2021-12-23 16:01 | disposition EMS.NT | LOC: EMS 16:00 | DX: S00.31XA Abrasion of nose, initial encounter (principal); Y04.2XXA Assault by strike against or bumped into by another person, initial encounter; Y92.039 Unspecified place in apartment as the place of occurrence of the external cause ==

== ENCOUNTER 2022-01-30 11:47 | Outpatient (CLI) | payer OTHER, MEDICAID ==
--- NOTE | 2022-01-30 15:00 | XRAY Report ---
PROCEDURE: Knee 4 View LT INDICATIONS: KNEE PAIN TECHNIQUE: 4views of the left knee(s) were acquired. COMPARISON: X-ray left knee, 09/02/2020. FINDINGS: Bones: No fractures or dislocations. No suspicious bony lesions. Postsurgical changes related to A CL repair. Mild degenerative joint disease is present. Soft tissues: No joint effusion. No suspicious soft tissue calcifications. IMPRESSION: 1. No acute osseous abnormalities. 2. ACL repair. 3. Mild degenerative joint disease. Reviewed by: Destiney Mendoza MD on 01/30/2022 2:58 PM PDT Approved by: Destiney Mendoza MD on 01/30/2022 2:58 PM PDT Station ID: [id number]
== END 2022-01-30 23:59 | disposition home or self-care (01) ==
LOC: DI.WOS 11:47
PROVIDERS: ATTEND Orthopaedic Surgery
DX: M23.52 Chronic instability of knee, left knee (principal); M17.12 Unilateral primary osteoarthritis, left knee